=== PATIENT | female | born 1975 | race Caucasian/White ===

== ENCOUNTER 2017-03-31 07:20 | Emergency (ER) | payer OTHER ==
[2017-03-31 07:40] VITALS: BP 142/85
[2017-03-31] MEDS ORDERED: cefTRIAXone VIAL(*) 1,000 MG VIAL IM ONE (08:09)
[2017-03-31] MEDS ORDERED: Lidocaine 1%* 5 ML VIAL ONE (08:13)
[2017-03-31] MEDS ORDERED: Phenazopyridine TAB* 100 MG PO ONE (08:14)
--- NOTE | 2017-03-31 09:06 | UC ---
Complaint Female HPI - HPI Summary HPI Summary: pt c/o urinary symptoms of dysuria, frequency and urgency X 1.5 weeks. Also, c/ o right flank pain. Denies fever or chills has SOLITARIO at time of exam. - History Of Current Complaint Chief Complaint: UCGU Stated Complaint: URINARY COMPLAINT Time Seen by Provider: 03/31/17 07:23 Hx Obtained From: Patient Hx Last Menstrual Period: pt is on nexplanon and states getting menses irregularyl ?: No Onset/Duration: Sudden Onset, Lasting Days - 10, Worse Since - onset Timing: Constant Severity Initially: Mild Severity Currently: Mild Pain Intensity: 7 Pain Scale Used: 0-10 Numeric Character: Burning Aggravating Factor(s): Urination Alleviating Factor(s): Nothing Associated Signs And Symptoms: Positive: Back Pain - Allergies/Home Medications Allergies/Adverse Reactions: Allergies Allergy/AdvReac Type Severity Reaction Status Date / Time No Known Allergies Allergy Verified 03/31/17 07:41 Home Medications: Home Medications Multiple Vitamins W/ Minerals [Womens Multivitamin] 1 tab PO DAILY 03/31/17 [ History Confirmed 03/31/17] Omeprazole CAP* [Prilosec CAP* 20 MG] 40 mg PO DAILY 03/31/17 [History Confirmed 03/31/17] PMH/Surg Hx/FS Hx/Imm Hx Previously Healthy: Yes - Surgical History Surgical History: Yes Surgery Procedure, Year, and Place: TYMPANIC MEMBRANE PATCYH.C SECTION 1994, - Family History Known Family History: Positive: Cardiac Disease - Social History Occupation: Employed Full-time Lives: With Family Alcohol Use: None Substance Use Type: None Smoking Status (MU): Heavy Every Day Tobacco Smoker Type: Cigarettes Amount Used/How Often: 1/2 ppd Length of Time of Smoking/Using Tobacco: since age 12 Have You Smoked in the Last Year: Yes When Did the Patient Quit Smoking/Using Tobacco: 6 months ago Household Exposure Type: Cigarettes - Immunization History Most Recent Influenza Vaccination: 3601-5943 Vaccination Up to Date: No Review of Systems Constitutional: Fatigue Skin: Negative Eyes: Negative ENT: Negative Respiratory: Negative Cardiovascular: Negative Gastrointestinal: Negative Genitourinary: Frequency, Urgency, Other - cva tenderness Motor: Negative Neurovascular: Negative Musculoskeletal: Negative Neurological: Headache Psychological: Negative Is Patient Immunocompromised?: No All Other Systems Reviewed And Are Negative: Yes Physical Exam Triage Information Reviewed: Yes Appearance: Ill-Appearing, Other: - tearful Vital Signs: Initial Vital Signs Temp 99.3 F 03/31/17 07:34 Pulse 81 03/31/17 07:34 Resp 16 03/31/17 07:34 BP 142/85 03/31/17 07:34 Pulse Ox 99 03/31/17 07:34 Vital Signs Reviewed: Yes Eye Exam: Normal ENT Exam: Normal Dental Exam: Normal Neck exam: Normal Respiratory Exam: Normal Cardiovascular Exam: Normal Abdominal Exam: Other Abdomen Description: Positive: CVA Tenderness (R) Musculoskeletal Exam: Normal Neurological Exam: Normal Psychological Exam: Normal Skin Exam: Normal Complaint Female Dx - Course Course Of Treatment: I disucssed with the pt my concerns about pyrelonephritis. Pt denies fever, and agreed that if symptoms did not improve she would seek care at the closest ER. I encouraged pt to go to ER today, pt declined. - Differential Dx/Diagnosis Differential Diagnosis/HQI/PQRI: Ureteral Stone, Urinary Tract Infection, Other - Pyelonephritis, kidney stone Provider Diagnoses: UTI. Pyelonephritis-? Discharge - Discharge Plan Condition: Stable Disposition: HOME Prescriptions: Cephalexin CAP* [Keflex 500 CAP*] 500 mg PO Q12H #10 cap Phenazopyridine TAB* [Pyridium 100 mg TAB*] 100 mg PO Q8H #3 tab Patient Education Materials: Urinary Tract Infection in Women (ED) Referrals: Keely Monge MD [Primary Care Provider] - If Needed
--- NOTE | 2017-04-02 07:16 | UC ---
Progress - Progress Note Progress Note: no change.
== END 2017-03-31 08:51 | disposition home or self-care (01) ==
LOC: UCCORT 07:20
DX: N39.0 Urinary tract infection, site not specified (principal); B96.20 Unspecified Escherichia coli [E. coli] as the cause of diseases classified elsewhere; Z87.891 Personal history of nicotine dependence
CPT/HCPCS: 81003; 87077; 87086; 87186; 96372; 99212; A9270-GY; G0463; J0696

== ENCOUNTER 2017-08-16 08:41 | Day surgery (SDC) | payer OTHER ==
--- NOTE | 2017-08-05 09:37 | HP ---
CC: Keely Monge MD * PREOP HISTORY AND PHYSICAL: DATE OF DICTATION: 08/02/17 DATE OF SURGERY: 08/16/17 ATTENDING SURGEON: Rosalina Gamble MD * (DICTATED BY RAO HANKINS) PRIMARY CARE PHYSICIAN: Keely Monge MD CHIEF COMPLAINT: Left breast abnormal mammogram. HISTORY OF PRESENT ILLNESS: Devi is a pleasant 42-year-old female who returned to the office today to discuss upcoming left breast excisional biopsy to be scheduled later this month. The patient has history of prior lumpectomy of the left breast back in 2010 due to abnormal mammogram. She has a strong family history of breast cancer of her maternal side for which she has been getting screening mammogram every 6 months. Back in 2010, her lumpectomy was essentially benign. She does a monthly breast exam and denies feeling any of lumps or masses. Her most recent mammogram was done back in May of this year that revealed abnormal stellate abnormality of the left breast. She went on and had sonographic guided biopsy that was unsuccessful back in June of this year. All the images were reviewed by Dr. Gamble and the patient saw her earlier this month. The decision was finally made to go ahead and do left breast excision after mammogram guided needle localization to remove the abnormal sonographic abnormality on her left breast. As mentioned above, the patient denies feeling any lumps are masses. She denies any skin changes, nipple discharge, fever, chills, or recent weight loss. She has never had any control use in her life. She is a smoker and denies any history of hyperlipidemia or personal history of breast cancer. PAST MEDICAL HISTORY: Significant for: 1. Hypothyroidism. 2. Seasonal allergies. 3. Acid reflux diseases. PAST SURGICAL HISTORY: Significant for: 1. back in 1994. 2. She also had a left breast lumpectomy back in 2010. CURRENT MEDICATIONS: Her medications at home include: 1. Nexplanon inserted q. 3 months 68 mg. 2. Katelyn 180 mg once daily. 3. Levothyroxine 125 mcg once daily. 4. Women's daily formula 1 tablet once daily. 5. Omeprazole 20 mg one tablet daily. ALLERGIES: She has no known drug allergies. SOCIAL HISTORY: The patient is a current smoker. Smokes about 10 cigarettes a day. She denies alcohol use and caffeine intake is minimal. She is and has grown up daughter. FAMILY HISTORY: Significant for breast cancer on the maternal side. REVIEW OF SYSTEMS: See HPI, otherwise negative. She denies any headache, dizziness, blurred vision, or double vision. No sore throat, changes in hearing , cough, or shortness of breath. No chest pain, palpitation, or ankle swelling. She denies any back pain, flank pain, dysuria, hematuria or urinary frequency. No abdominal pain, nausea, vomiting, or recent changes in her bowel habits. She admits to abnormal left breast mammogram recently with history of left breast lumpectomy. All her biopsies done and excisions were all benign. PHYSICAL EXAMINATION GENERAL: She is a pleasant, healthy-appearing middle-aged female, in no acute distress or discomfort. VITAL SIGNS: Her vitals today revealed blood pressure of 130/90, pulse of 68, respiration of 20, and O2 sat of 96%. HEENT: Head is normocephalic, atraumatic. Sclerae anicteric. PERRLA. EOMs intact. Oropharynx is pink, moist with no exudate. NECK: Supple. Trachea midline. No cervical adenopathy, thyromegaly, or JVD. LUNGS: Clear to auscultation bilaterally. HEART: Regular rate and rhythm. Normal S1 and S2 without rubs, murmurs, or gallops. BACK: With normal curvature. No CVA tenderness. BREASTS: Breast exam was performed earlier this month by Dr. Gamble that revealed symmetrical breasts with exception for scar in superior outer aspect of the left breast. There is no skin dimpling or nipple retraction. Palpation reveals no discrete masses in either breasts. There is a dense knobby tissue in the region of the scar, again no discrete masses or lumps. There is no lymphadenopathy bilaterally. There are no skin changes, nipple retraction, or discharge bilaterally. ABDOMEN: Soft, nontender, and nondistended. There are no hernias, masses, or hepatosplenomegaly. EXTREMITIES: Without cyanosis, clubbing, or edema. NEUROLOGIC: Grossly intact. RECTAL: Exam deferred at this time. IMPRESSION: A 42-year-old female with a recent screening mammogram revealing abnormal stellate lesion on left breast with a family history of breast cancer. PLAN: The patient is scheduled for mammogram guided needle localization of the left breast with excision of sonographic abnormality. She had a long discussion with Dr. Gamble and revealed that the sonographic finding was suspicious enough that is likely old due to scar tissue; however, there was no biopsy obtainable to reveal any histological findings for which further evaluation by surgical biopsy was warranted. We went ahead and described to her the nature of the needle localization with excision of the left breast, we reviewed the risks, rationale benefits. Risks include but not limited to infection, bleeding, or injury to adjacent structures. She seems to understand and wishes to proceed as outlined. RAO HANKINS [id number]/[facility] #: [id number] KELLY
[~2017-08-16 08:41] MED LIST: Buffered Lidocaine 0.9% SYRIN* 5 ML/SYR SYRINGE INTRADERM ONE; Sodium Citrate/Citric Acid* 15 ML UDC PO ONE
[2017-08-16] MEDS ORDERED: ceFAZolin 2 GM PREMIX (*) 2 GM/50 ML BAG IVPB ONE (08:49)
[2017-08-16] MEDS ORDERED: Sodium Citrate/Citric Acid* 15 ML UDC ONE (08:49)
[2017-08-16] MEDS ORDERED: Lidocaine 2.5%/Prilocain 2.5%* 5 GM TUBE ONE (08:49)
--- NOTE | 2017-08-16 10:31 | RAD ---
PROCEDURE: Mammographic needle/wire localization of the left breast PREOPERATIVE DIAGNOSIS: Atypical ductal hyperplasia POSTOPERATIVE DIAGNOSIS: Same COMPARISONS: August 13, 2017 LEATHER ROLLER: Desmond Olmedo MD ANESTHESIA: Local anesthesia with 1% lidocaine without epinephrine FLUOROSCOPY TIME: None CONTRAST: None PROCEDURAL NARRATIVE: A embroidery operator film was obtained on August 13, 2017. The procedure was explained to the patient who indicated understanding. Written and verbal informed consent was obtained. An opportunity was given to ask and answer questions. A timeout was performed. The patient was prepped and draped in the usual sterile fashion. Using mammographic guidance, a needle/wire localization system was advanced to the target lesion in the left breast. Once position was confirmed, the needle was removed using pin pull technique. Post localization mammography was performed. The wound was dressed and the wire was secured. FINDINGS: The tip of the hookwire is noted in close proximity to the marker clip of the left upper breast. SPECIMENS: Pending COMPLICATIONS: None DISPOSITION: The patient tolerated the procedure well, without complications during or immediately following the procedure. The patient was sent to the surgical suite in good, stable condition.. IMPRESSION: TECHNICALLY SUCCESSFUL, UNCOMPLICATED, NEEDLE/WIRE LOCALIZATION OF THE LEFT BREAST. HISTOLOGY IS PENDING
[2017-08-16] MEDS ORDERED: Lidocain 1% EPI 1:100,000 * 30 ML MDV ONE (11:07)
[2017-08-16] MEDS ORDERED: Bupivacaine 0.5%* 50 ML VIAL ONE (11:08)
[2017-08-16] MEDS ORDERED: Lidocaine 1% INJ* 10 MG/ML 30 ML SDV ONE (11:08)
[2017-08-16] MEDS ORDERED: fentaNYL* 50 MCG/ML 2 ML VIAL (100 MCG VIAL) ONE (11:35)
[2017-08-16] MEDS ORDERED: Midazolam* 1 MG/ML 2 ML VIAL (2 MG) ONE ×2 (11:35→11:41)
[2017-08-16] MEDS ORDERED: Propofol* 10 MG/ML 20 ML BTL IV PUSH ONE (11:39)
--- NOTE | 2017-08-16 12:57 | BRIEFOPN ---
Brief Operative Note - Surgery Procedures: 08/16/17 Op Note (dictated) Pre-op dx: sonographic abnormality left breast Post-op dx: same Procedue: needle localization excision of left breast sonographic abnormality Surgeon: Tye Asst: Mumtaz Anesth: local-MAC EBL: 5 cc SCDs on during surgery Abx: given pre-op Pt. tolerated procedure well and was transferred to in a stable condition. CLFoster
[2017-08-16] MEDS ORDERED: oxyCODONE/Acetamin 5/325 MG* TAB PO PRN ×2 (13:02)
[2017-08-16] MEDS ORDERED: Naloxone* 0.4 MG/ML 1 ML VIAL IV PRN (13:09)
[2017-08-16 13:22] VITALS: BP 108/64
--- NOTE | 2017-08-16 21:55 | OP ---
CC: Dr. Keely Monge; Dr. Celine Ruvalcaba * DATE OF OPERATION: 08/16/17 - [facility] DATE OF : 73 SURGEON: Rosalina Gamble MD NURSE PARALEGAL: Mumtaz. PRE-OP DIAGNOSIS: Sonographic abnormality of the left breast. POST-OP DIAGNOSIS: Sonographic abnormality of the left breast. OPERATIVE PROCEDURE: Needle localization excision of sonographic abnormality of the left breast. INDICATIONS: Devi Love is a 42-year-old woman who had a recent mammogram that showed a concerning lesion. An attempt was made at ultrasonographically biopsying this, it was unsuccessful, so plans were made for a surgical intervention. On the morning of surgery, she underwent needle localization without difficulty. DESCRIPTION OF PROCEDURE: She was then brought to the operating room, placed on the OR table in a supine position and given IV sedation. The left breast was prepped and draped in the usual sterile fashion taking care not to dislodge the localizing wire. After infiltrating with local anesthetic, a curvilinear elliptical incision encompassing the wire was made. Subcutaneous tissue was then divided with electrocautery to excise the massive tissue from around the wire. It was marked in the usual fashion and it was noted that the tip of the wire was visible at the inferior aspect of the specimen, so the decision was made to excise some more tissue from inferiorly. This was done with electrocautery. This second specimen was also marked in the usual fashion and it was noted that the superior aspect of the second specimen apposed the inferior aspect of the first specimen. Once these specimens were out, they were handed off to be sent to Radiology. Meanwhile, hemostasis was assured with electrocautery and once this was adequate, some additional local was instilled into the wound and then closure was accomplished. This was done with 3-0 Vicryl in the subcutaneous layer and the skin was closed with 4-0 Prolene in a subcuticular fashion. Steri-Strips and a dry sterile dressing were applied. All sponge and instrument counts were correct. The patient tolerated the procedure well and was transferred to Recovery in a stable condition. [id number]/[facility] #: [id number] MTDD
== END 2017-08-16 13:26 | disposition home or self-care (01) ==
LOC: SDS 08:41
PROVIDERS: ATTEND Surgery
DX: D24.2 Benign neoplasm of left breast (principal); N60.12 Diffuse cystic mastopathy of left breast; E03.9 Hypothyroidism, unspecified; K21.9 Gastro-esophageal reflux disease without esophagitis; F17.210 Nicotine dependence, cigarettes, uncomplicated
CPT/HCPCS: 81025; 88307; A9270-GY; J0690; J2250; J2704; J3010

== ENCOUNTER 2017-08-20 07:44 | Emergency (ER) | payer OTHER ==
[2017-08-20 08:05] VITALS: BP 119/90
--- NOTE | 2017-08-20 08:30 | UC ---
UC General HPI - HPI Summary HPI Summary: one week cough, st, yellow - green phlegm. No sob, but more tired. Tima since yesterday. No rash. Tired of coughing. No GI issues reported. Sx started Saturday (7 days ago, today is ). Had breast reduction Saturday08/16/17. Denies problems with surgery. Current sx are c/w what she had prior to surgery. No calf pain. No leg swelling. No shoulder pain. No change in cough / sob. - History of Current Complaint Chief Complaint: UCRespiratory Stated Complaint: COUGH,THROAT Time Seen by Provider: 08/20/17 08:00 Hx Obtained From: Patient Hx Last Menstrual Period: 06/06/2017 - mirana just taken out Pain Intensity: 0 - Allergy/Home Medications Allergies/Adverse Reactions: Allergies Allergy/AdvReac Type Severity Reaction Status Date / Time No Known Allergies Allergy Verified 08/20/17 08:06 Home Medications: Home Medications diphenhydrAMINE HCl [Allergy Medication] 25 mg PO DAILY 08/20/17 [History Confirmed 08/20/17] PMH/Surg Hx/FS Hx/Imm Hx Previously Healthy: Yes - Surgical History Surgical History: Yes Surgery Procedure, Year, and Place: TYMPANIC MEMBRANE PATCH 1989.C SECTION 1994, . LEFT BREAT LUMPECTOMY 2010 [facility]. LEFT BREAST LUMPECTOMY 08/16/17 - Family History Known Family History: Positive: Cardiac Disease - Social History Alcohol Use: None Substance Use Type: None Smoking Status (MU): Current Some Day Smoker Type: Cigarettes Amount Used/How Often: 5 A DAY Length of Time of Smoking/Using Tobacco: since age 12 Have You Smoked in the Last Year: No When Did the Patient Quit Smoking/Using Tobacco: 6 months ago Household Exposure Type: Cigarettes - Immunization History Most Recent Influenza Vaccination: [id number] Vaccination Up to Date: No Review of Systems Constitutional: Fatigue Skin: Negative Eyes: Negative ENT: Negative Respiratory: Cough Cardiovascular: Negative Gastrointestinal: Negative Genitourinary: Negative Motor: Negative Neurovascular: Negative Musculoskeletal: Negative Neurological: Negative Psychological: Negative Is Patient Immunocompromised?: No All Other Systems Reviewed And Are Negative: Yes Physical Exam Triage Information Reviewed: Yes Appearance: Well-Nourished - sitting up. looks a little tired but nad. Vital Signs: Initial Vital Signs Temp 98.8 F 08/20/17 07:58 Pulse 79 08/20/17 07:58 Resp 18 08/20/17 07:58 BP 119/90 08/20/17 07:58 Pulse Ox 97 08/20/17 07:58 Vital Signs Reviewed: Yes Eye Exam: Normal - grossly normal. ENT: Positive: TM dull - Bilat dull, mendiola, rtx'd., Other - mild post pharyngeal edema (c/w coughing), uvula midline. Airway patent. No stridor. Neck exam: Normal Neck: Positive: Supple Respiratory Exam: Other - + cough rhonchorus occas exp wheeze Respiratory: Positive: No respiratory distress, No accessory muscle use Cardiovascular Exam: Normal Cardiovascular: Positive: RRR, No Murmur, Pulses Normal, Brisk Capillary Refill Abdominal Exam: Normal Abdomen Description: Positive: Nontender Musculoskeletal Exam: Normal - moves x 4 ext's. gait steady. Neurological Exam: Normal - grossly nonfocal Psychological Exam: Normal - conversing easily and appropriately Skin Exam: Normal - no visible or reported rash. Course/Dx - Course Course Of Treatment: Reviewed coa / tx plan with pt, and reviewed need for recheck if worse or new sx(given recent surgery, she would need to consider ED) . Expressed understanding and agreement. Questions answered as posed. - Differential Dx - Multi-Symptom Provider Diagnoses: Acute bronchitis Discharge - Sign-Out/Discharge Documenting (check all that apply): Discharge - Discharge Plan Condition: Stable Disposition: HOME Prescriptions: Albuterol HFA INHALER* [Ventolin HFA Inhaler*] 1 - 2 puff INH Q4H PRN #1 mdi PRN Reason: Wheezing Azithromyxin SAMI (NF) [Z-Sami (Zithromax) 250 mg tabs #6] 2 tab PO .TODAY, THEN 1 DAILY #6 tab Fluconazole [Diflucan 150 MG (NF)] 150 mg PO DAILY #2 tab Patient Education Materials: Acute Bronchitis (ED) Forms: *Work Release Referrals: Keely Monge MD [Primary Care Provider] - - Billing Disposition and Condition Condition: STABLE Disposition: HOME
== END 2017-08-20 08:50 | disposition home or self-care (01) ==
LOC: UCCORT 07:44
DX: J20.9 Acute bronchitis, unspecified (principal); R44.8 Other symptoms and signs involving general sensations and perceptions; F17.210 Nicotine dependence, cigarettes, uncomplicated; Z98.890 Other specified postprocedural states
CPT/HCPCS: 99212; G0463

== ENCOUNTER 2017-12-24 16:22 | Emergency (ER) | payer OTHER ==
[2017-12-24 16:42] VITALS: BP 118/83
--- NOTE | 2017-12-24 17:10 | UC ---
Skin Complaint HPI - HPI Summary HPI Summary: Patient presents to urgent care with a rash on bilateral forearms. Patient states she first dose about 2 weeks ago. Patient states takes a shower gets the rash gets worse. 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 Patient has applied [id number] cortisone cream with little improvement. Patient states there has been new spots that have appeared but they're only on her forearms. Patient denies shortness of breath patient swelling wheezing or any other complaints. Patient denies any new foods. Patient states she did start a new hair gel product. 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 Patient states nobody else at home has similar symptoms. Patient is not . Patient's medications reviewed this visit. - History of Current Complaint Chief Complaint: UCRash Time Seen by Provider: 12/24/17 16:45 Stated Complaint: RASH ON BOTH ARMS Hx Obtained From: Patient Hx Last Menstrual Period: 11/04/17 ?: No Onset/Duration: Gradual Onset Skin Exposure Onset/Duration: Weeks Ago Pain Intensity: 0 - itching, no pain Location: Discrete - Allergy/Home Medications Allergies/Adverse Reactions: Allergies Allergy/AdvReac Type Severity Reaction Status Date / Time No Known Allergies Allergy Verified 12/24/17 16:43 Home Medications: Home Medications Fexofenadine (NF) [Katelyn 180 (NF)] 180 mg PO DAILY 12/24/17 [History Confirmed 12/24/17] Review of Systems Constitutional: Negative Skin: Other All Other Systems Reviewed And Are Negative: Yes PMH/Surg Hx/FS Hx/Imm Hx Previously Healthy: Yes - Surgical History Surgical History: Yes Surgery Procedure, Year, and Place: TYMPANIC MEMBRANE PATCH 1989.C SECTION 1994, . LEFT BREAT LUMPECTOMY 2010 [facility]. LEFT BREAST LUMPECTOMY 08/16/17 - Family History Known Family History: Positive: Cardiac Disease - Social History Occupation: Employed Full-time Lives: With Family Alcohol Use: None Substance Use Type: None Smoking Status (MU): Current Some Day Smoker Type: Cigarettes Amount Used/How Often: 5 A DAY Length of Time of Smoking/Using Tobacco: since age 12 Have You Smoked in the Last Year: No When Did the Patient Quit Smoking/Using Tobacco: 6 months ago Household Exposure Type: Cigarettes - Immunization History Most Recent Influenza Vaccination: [id number] Vaccination Up to Date: No Physical Exam - Summary Physical Exam Summary: Vital Signs Reviewed: Yes A+Ox3, no distress Eyes: Conjunctiva Clear ENT: Hearing grossly normal neck: supple Respiratory: Positive: No respiratory distress, No accessory muscle use Cardiovascular: skin color reflect adequate perfusion Musculoskeletal Exam: ESTRELLA x 4 without difficulty Neurological: Positive: Alert, ambulatory without difficulty Psychological: Positive: Normal Response To Family Skin: Positive: pt with hive-like rash to b/l forearms, volar aspect. No lesion proximal to elbow red, raised, pruruitic. Not dry appearing, no vesicles Triage Information Reviewed: Yes Vital Signs: Initial Vital Signs Temp 98.7 F 12/24/17 16:38 Pulse 59 12/24/17 16:38 Resp 16 12/24/17 16:38 BP 118/83 12/24/17 16:38 Pulse Ox 99 12/24/17 16:38 Course/Dx - Course Course Of Treatment: Patient presents with 2 weeks of pruritic rash to bilateral forearms. Patient states has mildly in the same area. Patient states it's worse when she exercises or takes a hot shower. Patient has applied topical over the counter hydrocortisone cream with mild improvement. 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 No bendaryl taken. Pt denies other complaints. On exam pt with mild hive like lesions to b/l forarms. no other areas affect. d/w pt at length - suspect contact dermatitis - from ? spin bike, planks, other other. recommend pred taper, pepcid, benadryl - precautions discussed. strict return precautions discussed. pt given contact info for derm if sx don't improve. pt comfortable an in agreement with plan - Diagnoses Provider Diagnoses: acute rash Discharge - Sign-Out/Discharge Documenting (check all that apply): Patient Departure All imaging exams completed and their final reports reviewed: No Studies - Discharge Plan Condition: Stable Disposition: HOME Prescriptions: predniSONE TAB* [Deltasone 20 MG TAB*] 20 mg PO DAILY #13 tab Patient Education Materials: Contact Dermatitis (ED) Referrals: Panda Michelle MD [Medical Doctor] - Keely Monge MD [Primary Care Provider] - Additional Instructions: - Take prednisone exactly as prescribed until gone - starting today - Okay to take Benadryl (1-2 tablets) every 6 hours as needed. This medication may cause drowsiness - do NOT drive, operate machinery or drink alcohol while taking Benadryl. Alternatively, you may apply over the counter benadryl cream to your rash - Okay to take pepcid 20mg 2 times daily for 7 days - Avoid getting over heated (hot showers, hot tubs, exercise) for at least 48 hours - Try to avoid aspirin, NSAIDs (Motrin, Aleve, Naprosyn) for 2-3 days - Okay to apply cool compresses to the area of injury - Contact your doctor or return here with questions or concerns - You have been given referral information for a betting clerks. If your symptoms persist it is recommended you contact this specialist to schedule a follow-up appointment - Billing Disposition and Condition Condition: STABLE Disposition: Home
== END 2017-12-24 17:17 | disposition home or self-care (01) ==
LOC: UCCORT 16:22
DX: R21 Rash and other nonspecific skin eruption (principal); F17.210 Nicotine dependence, cigarettes, uncomplicated
CPT/HCPCS: 99212; G0463

== ENCOUNTER 2018-08-20 07:52 | Emergency (ER) | payer OTHER ==
--- OUTSIDE RECORDS SUMMARY | 2018-08-20 08:10 | XMS REPORT | Continuity of Care Document ---
:1975 External Reference #:[id number] Author Name Keely Monge MD Address [address] [place] [address] Care Team Providers Name Role Phone Keely Monge MD Care Team Information Lavatory Attendant Unavailable Payers Date Identification Numbers Payment Provider Subscriber Policy Number: [id number] Lifetime Benefit Solns Devi Love Group Number: [id number] [address] [address] PayID: [facility] [place] [address] Effective: 2003 Policy Number: [id number] Delta DO Not Use Devi Love Expires: 2014 Group Number: [id number] [address] PayID: [place] [address] Onset: 2018 Policy Number: [id number] [employer] Devi Love PayID: [id number] [place] [address] Advance Directives Description No Information Available Problems Date Description Provider Status Onset: 08/01/2010 Pure hypercholesterolemia Marin Sandra DO Active Onset: 08/01/2010 Vitamin D deficiency Marin Sandra DO Active Onset: 02/18/2005 Hypothyroidism Active Onset: 05/19/2018 Irregular periods Keely Monge MD Active Onset: 05/19/2018 Mild major depression, single episode Keely Monge MD Active Onset: 05/19/2018 Hematuria syndrome Keely Monge MD Active Onset: 05/14/2017 Irritable bowel syndrome characterized Keely Monge MD Active by constipation Family History Date Family Member(s) Observation Comments Father Hypercholesterolemia Father due to Multiple Myeloma () - AGE 60 Father DM2 Mother Hypercholesterolemia Mother DM2 Children 1 Siblings 4 First Sister Mental Illness SCHIZOPHRENIA Paternal Grandfather due to MS () - AGE 75 SMOKER Maternal Grandfather due to MS () - AGE 75 SMOKER Social History Type Date Description Comments Sex Unknown Marital Status Lives With Daughter Occupation Public Health Educator ETOH Use Rarely consumes alcohol Tobacco Use Start: Unknown Patient has never smoked Smoking Status Reviewed: 03/14/18 Patient has never smoked Allergies, Adverse Reactions, Alerts Date Description Reaction Status Severity Comments 11/01/2015 Seasonal Active 09/07/2016 Augmentin Active Rash Medications Medication Date Status Form Strength Qnty SIG Indications Ordering Provider Levonorgestrel/Et 06/09/ Active Tablets 0.15-0.03m 84tab 1 by Z30.09 Saleem hinyl Estradiol 2019 g s mouth MD Keely daily Escitalopram 05/19/ Active Tablets 10mg 30tab 1 by F32.0 Saleem Oxalate 2018 s mouth MD Keely every day Dicyclomine HCL 11/11/ Active Capsules 10mg 90cap 1 by K58.1 Saleem, 2017 s mouth MD Keely before meals as needed Omeprazole 09/24/ Active Capsules 40mg 90cap take one K58.1 Saleem, 2016 s capsule MD Keely by mouth every day Ibuprofen 05/02/ Active Capsules 200mg 4 tabs by Jocy, 2016 mouth Marin, once a DO day as needed with food or snack for pain Katelyn-D 24 Hour 10/31/ Active Tablets ER 180-240mg 30tab 1 by J30.9 Jocy, Allergy & 2016 24HR s mouth Marin, Congestion every day DO Multivitamins 10/08/ Active Capsules OTC 1 by Jocy 2015 mouth Marin, every day DO Levothyroxine 09/13/ Active Tablets 125mcg 90tab take one E03.9 Richard Monge 2015 s tablet by MD Keely mouth every day Acetaminophen 00/00/ Active Tablets 325mg 2 by Unknown 0000 mouth four times a day as needed Azithromycin 06/09/ Hx Tablets 250mg 6tabs 2 by J01.90 Saleem, 2019 - link Riggs MD 08/07/ today, 2019 then 1 by mouth daily x 4 more days Meloxicam 03/05/ Hx Tablets 15mg 30tab 1 tab by M25.512 Saleem 2018 - s link Riggs MD 05/18/ daily for 2019 pain for 1-2 weeks, then daily as needed for pain Cyclobenzaprine 03/05/ Hx Tablets 10mg 30tab 1 by M25.512 Saleem HCL 2018 - s link Riggs MD 05/18/ every at 2018 bedtime x 1-2 weeks, then as needed muscle spasm Oseltamivir 06/20/ Hx Capsules 75mg 10cap 1 by J11.1 Saleem Phosphate 2018 - s link Riggs MD 10/18/ twice 2018 daily x 5 days Fluconazole 04/16/ Hx Tablets 150mg 1tabs 1 tablet N89.8 Jose Armando 2016 - by mouth Terrell, 04/17/ x 1 DO 2016 Dicyclomine HCL 09/24/ Hx Capsules 10mg 90cap 1 by K58.1 Jocy, 2016 - s mouth Marin, 10/18/ before DO 2017 meals tid Metronidazole 09/10/ Hx Tablets 500mg 14tab 1 tablet Caity 2016 - s by mouth Kristin, 09/24/ twice PA 2016 daily for 7 days Fluconazole 09/07/ Hx Tablets 150mg 1tabs 1 tablet N89.8 Caity, 2016 - by mouth Kristin, 09/24/ x 1 PA 2016 Augmentin 08/20/ Hx Tablets 875-125mg 14tab 1 by J01.10 Caity 2016 - s mouth Kristin, 08/27/ twice a PA 2016 day x 7 days Ibuprofen (OTC) 05/02/ Hx Tablets 800mg 90tab 4 by Jocy, 2015 - s mouth Marin, 05/02/ once a DO 2015 day as needed Clobetasol 04/11/ Hx Cream 0.05% 60uni apply to Jocy Propionate 2014 - ts area Marin, 05/02/ twice a DO 2015 day Bentyl 12/13/ Hx Tablets 20mg 90tab 1 by 789.00 Jocy, 2014 - s mouth Marin, 10/31/ three DO 2016 times a day as needed symptoms Ortho Tri-Cyclen / Hx Tablets 0.18/0.215 1 by Anderson (28) 0000 - /0.25 mouth Center 05/02/ mg-35 mcg every day 2015 Linzess / Hx Capsules 145mcg 90cap 1 by K58.1 Jocy, 0000 - s mouth Marin, 10/18/ every day DO 2017 Nexplanon /00/ Hx Implant 68mg Jordon, 0000 - Celine 2017 Amoxicillin /00/ Hx Tablets 875mg Take One Unknown 0000 - Tablet By Mouth 2018 Every 12 Hours- pt states she is on day 3 of . Fluconazole 00/ Hx Tablets 150mg Take 1 Unknown 0000 - Tablet By Mouth 2018 Once Immunizations CPT Code Status Date Vaccine Lot # [id number] Given 02/17/2018 Flu Vaccine NOS 66090 Given 02/03/2017 Afluria Or Fluvirin Flu Vac Intramuscular 24622 Given 07/17/2006 Tdap (Adacel) Ages 7 And Above Only Vital Signs Date Vital Result Comment 08/07/2018 8:47am Weight 163.00 lb BP Systolic Lying Down 120 mmHg HR 60 BP Diastolic Lying Down 80 mmHg HR 60 BP Systolic Sitting 120 mmHg HR 60 BP Diastolic Sitting 80 mmHg HR 60 BP Systolic Standing 120 mmHg HR 60 BP Diastolic Standing 80 mmHg HR 60 Respiratory Rate 18 /min Height 63 inches 5'3" BMI (Body Mass Index) 28.9 kg/m2 06/09/2018 10:12am Body Temperature 98.8 F Weight 158.00 lb Heart Rate 60 /min BP Systolic 114 mmHg BP Diastolic 68 mmHg Respiratory Rate 16 /min Height 63 inches 5'3" O2 % BldC Oximetry 96 % Ra BMI (Body Mass Index) 28.0 kg/m2 05/19/2018 1:17pm Weight 161.00 lb Heart Rate 72 /min BP Systolic 118 mmHg BP Diastolic 68 mmHg Respiratory Rate 16 /min Height 63 inches 5'3" O2 % BldC Oximetry 98 % Ra BMI (Body Mass Index) 28.5 kg/m2 03/14/2018 3:41pm Body Temperature 97.2 F Weight 158.00 lb Heart Rate 76 /min BP Systolic 124 mmHg BP Diastolic 70 mmHg Respiratory Rate 18 /min Height 63 inches 5'3" BMI (Body Mass Index) 28.0 kg/m2 03/05/2018 10:30am Body Temperature 97.8 F Weight 157.00 lb Heart Rate 62 /min BP Systolic 132 mmHg BP Diastolic 86 mmHg Respiratory Rate 16 /min Height 63 inches 5'3" O2 % BldC Oximetry 98 % Ra BMI (Body Mass Index) 27.8 kg/m2 11/11/2017 3:10pm Weight 158.00 lb Heart Rate 68 /min BP Systolic 122 mmHg BP Diastolic 80 mmHg Respiratory Rate 18 /min Height 63 inches 5'3"05/14/17 BMI (Body Mass Index) 28.0 kg/m2 10/18/2017 10:30am Weight 160.00 lb Heart Rate 72 /min BP Systolic 134 mmHg BP Diastolic 74 mmHg Respiratory Rate 18 /min Height 63 inches 5'3"05/14/17 BMI (Body Mass Index) 28.3 kg/m2 06/20/2017 9:35am Body Temperature 98.9 F Weight 162.00 lb Heart Rate 90 /min BP Systolic 130 mmHg BP Diastolic 70 mmHg Respiratory Rate 18 /min Height 63 inches 5'3"05/14/17 O2 % BldC Oximetry 96 % BMI (Body Mass Index) 28.7 kg/m2 05/14/2017 1:13pm Body Temperature 98.5 F Weight 164.00 lb Heart Rate 68 /min BP Systolic 120 mmHg BP Diastolic 72 mmHg Respiratory Rate 18 /min Height 63 inches 5'3"05/14/17 O2 % BldC Oximetry 98 % BMI (Body Mass Index) 29.0 kg/m2 04/10/2017 3:15pm Body Temperature 99.2 F Weight 166.00 lb Heart Rate 68 /min BP Systolic 132 mmHg BP Diastolic 80 mmHg Respiratory Rate 18 /min Height 63 inches 5'3" BMI (Body Mass Index) 29.4 kg/m2 10/31/2016 8:59am Weight 164.00 lb Heart Rate 72 /min 72 Reg BP Systolic 120 mmHg BP Diastolic 82 mmHg BP Systolic Recheck 120 mmHg BP Diastolic Recheck 80 mmHg Respiratory Rate 18 /min Height 63 inches 5'3" BMI (Body Mass Index) 29.0 kg/m2 09/24/2016 3:25pm Body Temperature 99.4 F tympanic Weight 166.00 lb Heart Rate 80 /min BP Systolic 114 mmHg BP Diastolic 66 mmHg Respiratory Rate 16 /min Height 63 inches 5'3" BMI (Body Mass Index) 29.4 kg/m2 09/07/2016 3:06pm Weight 165.00 lb Heart Rate 68 /min BP Systolic 130 mmHg BP Diastolic 70 mmHg Respiratory Rate 18 /min Height 63 inches 5'3" BMI (Body Mass Index) 29.2 kg/m2 08/20/2016 10:43am Body Temperature 99.4 F Weight 164.00 lb Heart Rate 56 /min BP Systolic 120 mmHg BP Diastolic 70 mmHg Respiratory Rate 18 /min Height 63 inches 5'3" O2 % BldC Oximetry 98 % BMI (Body Mass Index) 29.0 kg/m2 05/02/2016 8:58am Weight 157.00 lb With Shoes Heart Rate 66 /min 68 Reg BP Systolic 120 mmHg BP Diastolic 80 mmHg BP Systolic Recheck 110 mmHg BP Diastolic Recheck 80 mmHg Respiratory Rate 16 /min Height 63 inches 5'3" BMI (Body Mass Index) 27.8 kg/m2 11/01/2015 2:54pm Weight 159.00 lb Heart Rate 66 /min BP Systolic 118 mmHg BP Diastolic 70 mmHg Respiratory Rate 18 /min Height 63 inches 5'3" BMI (Body Mass Index) 28.2 kg/m2 05/25/2015 3:05pm Weight 155.00 lb Heart Rate 72 /min BP Systolic 124 mmHg BP Diastolic 62 mmHg Respiratory Rate 18 /min 04/11/2015 8:07am Weight 148.25 lb Heart Rate 84 /min BP Systolic 122 mmHg BP Diastolic 80 mmHg Respiratory Rate 18 /min Height 63 inches 5'3" BMI (Body Mass Index) 26.3 kg/m2 12/13/2014 4:09pm Body Temperature 99.5 F Weight 151.00 lb Heart Rate 72 /min BP Systolic 110 mmHg BP Diastolic 80 mmHg Respiratory Rate 18 /min Height 63 inches 5'3" BMI (Body Mass Index) 26.7 kg/m2 10/08/2014 8:05am Weight 150.00 lb Heart Rate 72 /min 70 BP Systolic 118 mmHg BP Diastolic 80 mmHg BP Systolic Recheck 120 mmHg BP Diastolic Recheck 76 mmHg Respiratory Rate 18 /min Height 63 inches 5'3" BMI (Body Mass Index) 26.6 kg/m2 04/09/2014 8:21am BP Systolic 110 mmHg BP Diastolic 70 mmHg 04/09/2014 8:21am Weight 147.00 lb Heart Rate 78 /min 72 Reg BP Systolic 126 mmHg BP Diastolic 64 mmHg Respiratory Rate 17 /min Height 63 inches 5'3" 03/20/2014 10:13am Body Temperature 99.2 F Weight 149.00 lb Heart Rate 72 /min BP Systolic 128 mmHg BP Diastolic 76 mmHg Respiratory Rate 17 /min Height 63 inches 5'3" 08/04/2013 8:23am Heart Rate 60 /min BP Systolic 100 mmHg BP Diastolic 76 mmHg Respiratory Rate 18 /min Height 63 inches 5'3" 03/20/2013 2:24pm Body Temperature 97.8 F Weight 147.00 lb Heart Rate 64 /min BP Systolic 128 mmHg BP Diastolic 70 mmHg Respiratory Rate 18 /min O2 % BldC Oximetry 98 % 02/03/2013 8:13am BP Systolic 110 mmHg BP Diastolic 80 mmHg 02/03/2013 8:13am Weight 142.00 lb Heart Rate 72 /min 72 Reg BP Systolic 120 mmHg BP Diastolic 80 mmHg Respiratory Rate 18 /min 01/20/2013 9:32am Body Temperature 97.9 F Weight 143.00 lb Heart Rate 72 /min BP Systolic 122 mmHg BP Diastolic 80 mmHg Respiratory Rate 18 /min O2 % BldC Oximetry 98 % Ra 08/04/2012 8:17am BP Systolic 110 mmHg BP Diastolic 70 mmHg 08/04/2012 8:17am Weight 140.00 lb Heart Rate 72 /min 72 Reg BP Systolic 108 mmHg BP Diastolic 72 mmHg Respiratory Rate 18 /min 04/24/2012 1:03pm Weight 140.50 lb Heart Rate 70 /min BP Systolic 114 mmHg BP Diastolic 76 mmHg Respiratory Rate 16 /min Height 63 inches 5'3" 02/18/2012 11:06am Body Temperature 99.5 F Weight 142.00 lb Heart Rate 60 /min BP Systolic 122 mmHg BP Diastolic 70 mmHg Respiratory Rate 18 /min 02/04/2012 8:14am BP Systolic 118 mmHg BP Diastolic 72 mmHg 02/04/2012 8:14am Weight 142.00 lb Heart Rate 60 /min 72 Reg BP Systolic 112 mmHg BP Diastolic 72 mmHg Respiratory Rate 18 /min 08/02/2011 8:04am BP Systolic 110 mmHg BP Diastolic 70 mmHg 08/02/2011 8:04am Weight 162.00 lb Heart Rate 66 /min 72 Reg BP Systolic 110 mmHg BP Diastolic 68 mmHg Respiratory Rate 18 /min Height 63 inches 5'3" 02/01/2011 8:06am Weight 167.00 lb Heart Rate 66 /min BP Systolic 110 mmHg BP Diastolic 70 mmHg Respiratory Rate 18 /min Height 63 inches 5'3" 08/01/2010 8:01am BP Systolic 102 mmHg BP Diastolic 70 mmHg 08/01/2010 8:01am Weight 156.00 lb Heart Rate 66 /min 60 Reg BP Systolic 102 mmHg BP Diastolic 70 mmHg Respiratory Rate 18 /min 01/31/2010 8:04am BP Systolic 100 mmHg BP Diastolic 60 mmHg 01/31/2010 8:04am Weight 161.00 lb Heart Rate 78 /min 72 Reg BP Systolic 102 mmHg BP Diastolic 62 mmHg Respiratory Rate 18 /min 11/23/2009 9:38am Body Temperature 98.8 F Weight 162.56 lb Heart Rate 78 /min BP Systolic 114 mmHg BP Diastolic 72 mmHg Respiratory Rate 18 /min O2 % BldC Oximetry 96 % Ra 10/17/2009 9:28am Body Temperature 98.3 F Weight 164.00 lb Heart Rate 70 /min BP Systolic 116 mmHg BP Diastolic 74 mmHg O2 % BldC Oximetry 96 % Ra 06/07/2009 8:00am Weight 162.00 lb Heart Rate 78 /min BP Systolic 110 mmHg BP Diastolic 76 mmHg Respiratory Rate 18 /min 12/02/2008 8:01am Weight 165.00 lb Heart Rate 72 /min BP Systolic 108 mmHg BP Diastolic 68 mmHg Respiratory Rate 18 /min 06/03/2008 8:04am Weight 164.00 lb Heart Rate 78 /min BP Systolic 114 mmHg BP Diastolic 68 mmHg Respiratory Rate 18 /min 12/01/2007 11:15am Weight 166.00 lb Heart Rate 72 /min BP Systolic 114 mmHg BP Diastolic 66 mmHg Respiratory Rate 18 /min Height 63.75 inches 5'3.75" 05/15/2007 9:12am Weight 162.00 lb Heart Rate 84 /min BP Systolic 120 mmHg BP Diastolic 70 mmHg Respiratory Rate 20 /min Height 63.75 inches 5'3.75" 07/17/2006 9:40am Body Temperature 98.4 F Weight 164.00 lb Heart Rate 80 /min BP Systolic 110 mmHg BP Diastolic 80 mmHg Respiratory Rate 12 /min Height 63.75 inches 5'3.75" 05/10/2006 9:55am Body Temperature 97.6 F Weight 166.00 lb Heart Rate 78 /min BP Systolic 110 mmHg BP Diastolic 62 mmHg Respiratory Rate 18 /min 11/20/2005 9:59am Weight 162.00 lb Heart Rate 60 /min BP Systolic 120 mmHg BP Diastolic 74 mmHg Respiratory Rate 12 /min 12/15/2004 8:53am Weight 150.00 lb Heart Rate 58 /min BP Systolic 110 mmHg BP Diastolic 80 mmHg 09/14/2004 9:06am Body Temperature 97.0 F Weight 156.00 lb Heart Rate 74 /min BP Systolic 110 mmHg BP Diastolic 70 mmHg Respiratory Rate 16 /min Results Test Date Facility Test Result H/L Range Note Rout Urine W/ Micro -RL 05/19/2018 [facility] Color YELLOW Appearance CLEAR Spec Grav Urine 1.024 (1.003-1.030) PH Urine 5.5 (5.0-7.5) Leuk Esterase NEGATIVE (Neg) Nitrite Urine NEGATIVE (Neg) Protein Urine NEGATIVE (Neg) Glucose Urine NEGATIVE (Neg) Ketone Urine NEGATIVE (Neg) Urobilinogen 0.2 mg/dL (0-1.0) Bilirubin Urine NEGATIVE (Neg) Blood/HGB Urine TRACE (Neg) Epithelial Cells NEGATIVE [HPF] (Neg) Hyaline Casts 3.2 [LPF] (0-5) Bacteria NEGATIVE [HPF] (Neg) Urine WBC 0.9 [HPF] (0-8) Urine RBC 3.3 [HPF] High (0-3) 1 Laboratory test 05/19/2018 [facility] Urine Culture Microbiology res <SEE 2 finding NOTE> Laboratory test 05/19/2018 [facility] FSH 6.6 mIU/ml 3, 4 finding LH 4.9 mIU/ml 5 CBC with Auto Diff-fcmg 05/19/2018 [facility] WBC 6.3 K/uL 4.1-11.0 RBC 4.60 M/uL 4.00-5.40 Hemoglobin 14.9 gm/dL 12.0-16.0 Hematocrit 42.6 % 36.0-47.0 MCV 92.6 fL 80.0-97.0 MCH 32.4 pg High 27.0-32.0 MCHC 35.0 g/dL 32.0-36.0 RDW 12.9 % 11.5-14.5 PLT Count 186 K/ul 140-400 MPV 8.6 FL 7.1-10.7 Neutrophil 55.7 % 35.0-75.0 Lymphocyte 35.8 % 16.0-52.0 Monocyte 6.3 % 2.0-10.0 Eosinophil 1.8 % 0.0-5.0 Basophil 0.4 % 0.0-4.0 Abs Neutrophils 3.5 K/uL 2.1-8.0 Abs Lymphocytes 2.2 K/uL 0.8-5.5 Abs Monocytes 0.4 K/uL 0.1-1.0 Abs Eosinophils 0.1 K/uL 0.0-0.5 Abs Basophils 0.0 K/uL 0.0-0.3 Comprehensive Met Panel-FCMG 05/19/2018 [facility] Sodium 141 mmol/L 135- 146 6 Potassium 4.2 mmol/L 3.5-5.2 Chloride# 107 mmol/L 97-110 7 Carbon Dioxide 24 mmol/L 24-34 Glucose 102 mg/dL 70-105 BUN 13 mg/dL 6-26 Creatinine 0.7 mg/dL 0.5-1.4 Calcium 9.4 mg/dL 8.5-10.2 Total Protein 6.3 g/dL 6.0-8.0 Albumin 4.4 g/dL 3.6-4.9 Globulin 1.9 g/dL Low 2.0-3.5 A/G Ratio 2.3 Ratio High 1.0-2.2 Total Bilirubin 0.4 mg/dL 0.1-1.3 Alkaline Phosphatase 55 U/L 24-140 Alt 11 U/L 3-42 Ast 15 U/L 8-42 Zoe Egfr >60 >60 8 Non Zoe Egfr >60 >60 9 Anion Gap 10 mmol/L 5-15 10 Laboratory test finding 05/19/2018 [facility] Estradiol 80 pg/mL 11 Laboratory test finding 05/15/2018 [facility] TSH 2.52 uIU/mL 0.35-4.94 12 Laboratory test finding 11/07/2017 [facility] TSH 2.21 uIU/mL 0.35-4.94 13 Laboratory test finding 04/26/2017 [facility] TSH 1.69 uIU/mL 0.35-4.94 14 Free T4 1.07 ng/dL 0.70-1.48 Vitamin D 25 Hydroxy 32 ng/mL 30-100 15 Comprehensive Met Panel-FCMG 04/26/2017 [facility] Sodium 139 mmol/L 135- 146 16 Potassium 4.1 mmol/L 3.5-5.2 Chloride# 106 mmol/L 97-110 17 Carbon Dioxide 25 mmol/L 24-34 Glucose 94 mg/dL 70-105 Creatinine 0.8 mg/dL 0.5-1.4 Calcium 9.6 mg/dL 8.5-10.2 Total Protein 6.7 g/dL 6.0-8.0 Albumin 4.3 g/dL 3.6-4.9 Globulin 2.4 g/dL 2.0-3.5 A/G Ratio 1.8 Ratio 1.0-2.2 Total Bilirubin 0.6 mg/dL 0.1-1.3 Alkaline Phosphatase 69 U/L 24-140 Alt 17 U/L 3-42 Ast 22 U/L 8-42 Zoe Egfr >60 >60 18 Non Zoe Egfr >60 >60 19 Anion Gap 8 mmol/L 7-16 20 BUN 13 mg/dL 6-26 Laboratory test 04/10/2017 [place] Urine Culture Microbiology res 21 finding <SEE NOTE> CBS W/Automated 04/03/2017 [facility] White Blood 6.0 K/ uL N 3.1-10 22 Diff (315)- - Count .7 Red Blood Count 3.55 M/uL Low 3.90-5.40 Hemoglobin 11.5 gm/dL Low 11.6-15.8 Hematocrit 33.2 % Low 36.0-46.1 Mean Cell Volume 93.5 fl N 80.9-99.0 Mean Corpuscular HGB 32.4 pg N 25.9-32.7 Mean Corpuscular HGB Conc 34.6 g/dL High 30.8-34.3 Platelet Count 179 K/uL N 150-400 Red Cell Distri Width SD 39.7 fl N 3-47 Red Cell Distri Width %CV 12.0 % N 11.7-14.4 Mean Platelet Volume 10.7 fL N 8.9-12.4 Neut% 63.3 % N 40.4-72.8 Lymph % 26.0 % N 20.0-42.0 Ashe % 8.7 % N 4.3-13.2 Eo% 1.8 % N 0.0-6.6 Bas% 0.2 % N 0.0-1.1 Neut# 3.81 K/uL N 1.8-7.0 Lymph # 1.56 K/uL N 1.0-4.0 Ashe # 0.52 K/uL N 0.3-0.9 Eos # 0.11 K/uL N 0.0-0.5 Baso # 0.01 K/uL N 0.0-0.1 Basic Metabolic Panel 04/03/2017 [facility] Glucose 128 mg/dL High 74-106 (315)- - BUN 11 mg/dL N 7-18 Creatinine 0.7 mg/dL N 0.6-1.3 Glom Filtration Rate, Estimate >60 mL/min >60 If >60 mL/min >60 23 BUN/Creat 15.7 ratio Sodium 141 mmol/L N 136-145 Potassium 3.5 mmol/L N 3.5-5.1 Chloride 110 mmol/L High 98-107 Carbon Dioxide 22 mmol/L N 21-32 Anion Gap 9 mEq/L N 8-16 Calcium 8.5 mg/dL N 8.5-10.1 Lactic Acid 04/02/2017 [facility] Lactic Acid 1.3 mmol/L N 0.4-1.9 (315)- - Lab Reflex >2.0 for Sepsis? Y Blood Culture 04/02/2017 [facility] Blood Culture NO GROWTH: FINAL 24 (315)- - Aerobic <SEE NOTE> Blood Culture Anaerobic NO GROWTH: FINAL <SEE NOTE> 25 Laboratory test 04/02/2017 [facility] Urine Culture NO GROWTH: 26 finding (315)- - FINAL <SEE NOTE> Culture If 04/02/2017 [facility] Culture If CULTURE TO 27, 28 Indicated Comment (315)- - Indicated FOLLO <SEE Comment NOTE> Source: URINE, CLEAN CAT <SEE NOTE> 29 Blood Culture 04/02/2017 [facility] Blood Culture NO GROWTH: 30, 31 (315)- - Aerobic FINAL <SEE NOTE> Blood Culture Anaerobic NO GROWTH: FINAL <SEE NOTE> 32 Comprehensive Metabolic 04/02/2017 [facility] Glucose 101 mg/dL N 74-106 33 Panel (315)- - BUN 12 mg/dL N 7-18 Creatinine 0.7 mg/dL N 0.6-1.3 Glom Filtration Rate, Estimate >60 mL/min >60 If >60 mL/min >60 34 BUN/Creat 17.1 ratio Sodium 141 mmol/L N 136-145 Potassium 3.8 mmol/L N 3.5-5.1 Chloride 110 mmol/L High 98-107 Carbon Dioxide 25 mmol/L N 21-32 Anion Gap 6 mEq/L Low 8-16 Calcium 8.1 mg/dL Low 8.5-10.1 Total Protein 6.5 g/dL N 6.4-8.2 Albumin 2.9 g/dL Low 3.4-5.0 Globulin 3.6 g/dL N 1.9-4.3 Alb/Glob 0.8 ratio Bilirubin,Total 0.5 mg/dL N 0.2-1.0 Sgot/Ast 14 U/L Low 15-37 35 SGPT/Alt 20 U/L N 12-78 Alkaline Phosphatase 65 U/L N 45-117 Laboratory test 04/02/2017 [facility] Lipase 279 U/L N 56-289 36 finding (315)- - CBS W/Automated 04/02/2017 [facility] White Blood 10.5 K/ uL N 3.1-10.7 Diff (315)- - Count Red Blood Count 4.44 M/uL N 3.90-5.40 Hemoglobin 14.2 gm/dL N 11.6-15.8 Hematocrit 40.8 % N 36.0-46.1 Mean Cell Volume 91.9 fl N 80.9-99.0 Mean Corpuscular HGB 32.0 pg N 25.9-32.7 Mean Corpuscular HGB Conc 34.8 g/dL High 30.8-34.3 Platelet Count 196 K/uL N 150-400 Red Cell Distri Width SD 39.5 fl N 3-47 Red Cell Distri Width %CV 12.0 % N 11.7-14.4 Mean Platelet Volume 10.0 fL N 8.9-12.4 Neut% 78.0 % High 40.4-72.8 Lymph % 14.2 % Low 20.0-42.0 Ashe % 7.2 % N 4.3-13.2 Eo% 0.5 % N 0.0-6.6 Bas% 0.1 % N 0.0-1.1 Neut# 8.19 K/uL High 1.8-7.0 Lymph # 1.49 K/uL N 1.0-4.0 Ashe # 0.76 K/uL N 0.3-0.9 Eos # 0.05 K/uL N 0.0-0.5 Baso # 0.01 K/uL N 0.0-0.1 Slide Review 04/02/2017 [facility] Slide Review . 37 (315)- - Urinalysis With 04/02/2017 [facility] Urine Color DK YELLOW Yellow Microscopic (315)- - Urine Clarity SL CLOUDY Clear Urine Glucose - Dipstick NEGATIVE mg/dL Negative Urine Bilirubin - Dipstick SMALL Abnormal Negative Urine Ketone 40 mg/dL High Negative Urine Specific Hoffman 1.025 N 1.010-1.030 Urine Blood MODERATE Abnormal Negative Urine PH 5.5 Low 6.5-7.5 Urine Protein - Dipstick 100 mg/dL High Negative Urine Urobilinogen - Dipstick 0.2 E.U./dL N 0.2-1.0 Urine Nitrite - Dipstick POSITIVE Abnormal Negative Urine Leuk Esterase SMALL Abnormal Negative Urine RBC 5-10 rbc/hpf High 0-2 Urine WBC > 50 wbc/hpf High 0-7 Urine Epithelial Cells MODERATE /lpf None Seen 38 Urine Bacteria VERY FEW None Seen Source: URINE, CLEAN CAT <SEE NOTE> 39 Urine HCG 04/02/2017 [facility] Urine HCG NEGATIVE Negative 40 (Qualitative) (315)- - (Qualitative) Source: URINE, CLEAN CAT <SEE NOTE> 41 Laboratory test finding 10/24/2016 [facility] TSH 1.87 uIU/mL 0.35-4.94 42 Free T4 1.06 ng/dL 0.70-1.48 Lipid Treatment 10/24/2016 [facility] Cholesterol 199 mg/dL 50-199 Triglycerides 103 mg/dL 30-150 HDL 53 mg/dL 45-85 43 Chol/ HDL Ratio 3.7 ratio 3.7-5.6 VLDL 21 mg/dL 2-29 LDL (Calc) 125 mg/dL 20-129 44 Alt 13 U/L 3-42 Ast 18 U/L 8-42 Laboratory test finding 10/24/2016 [facility] Vit D,25 Hydroxy 32 ng/mL 31- 100 Basic (BMP) 10/24/2016 [facility] Sodium 143 mmol/L 135-146 45 Potassium 5.2 mmol/L 3.5-5.2 Chloride# 108 mmol/L 97-110 46 Carbon Dioxide 27 mmol/L 24-34 Glucose 92 mg/dL 70-105 BUN 13 mg/dL 6-26 Creatinine 0.9 mg/dL 0.5-1.4 Calcium 10.3 mg/dL High 8.5-10.2 Non Zoe Egfr >60 >60 47 Zoe Egfr >60 >60 48 Anion Gap 13 mmol/L 7-16 49 Laboratory test finding 10/24/2016 [facility] Vitamin B12 547 pg/mL 180- 914 CBC With Auto Diff 10/24/2016 [facility] WBC 4.1 K/uL 4.1-11.0 RBC 4.69 M/uL 4.00-5.40 Hemoglobin 14.7 gm/dL 12.0-16.0 Hematocrit 43.3 % 36.0-47.0 MCV 92.3 fL 80.0-97.0 MCH 31.3 pg 27.0-32.0 MCHC 34.0 g/dL 32.0-36.0 RDW 13.0 % 11.5-14.5 PLT Count 240 K/ul 140-400 Neutrophil 45.1 % 35.0-75.0 Lymphocyte 43.3 % 16.0-52.0 Monocyte 7.2 % 2.0-10.0 Eosinophil 3.7 % 0.0-5.0 Basophil 0.7 % 0.0-4.0 Abs Neutrophils 1.8 K/uL Low 2.1-8.0 Abs Lymphocytes 1.8 K/uL 0.8-5.5 Abs Monocytes 0.3 K/uL 0.1-1.0 Abs Eosinophils 0.1 K/uL 0.0-0.5 Abs Basophils 0.0 K/uL 0.0-0.3 Affirm 09/07/2016 [facility] Trichomonas Vaginalis Negative Negative Gardnerella Vaginalis Positive Abnormal Negative Asia Species Negative Negative GC/Chlamydia By Dna 09/07/2016 [facility] Chlamydia by Dna NEGATIVE Negative Probe Probe GC by Dna Probe NEGATIVE Negative Manual Differential 11/01/2015 [facility] Neutrophils 27 % Low 35-75 50 Lymphocytes 62 % High 16-52 Atypical Lymphs 3 0-5 Monocytes 6 % 0-8 Eosinophils 2 % 0-5 Basophils 0 % 0-4 Platelet Estimate Normal Normal RBC Morphology Normal Normal Abs Neutrophils# 1.1 K/ul Low 1.8-7.7 Abs Lymphocytes# 2.5 K/ul 1.2-4.8 Abs Monocytes# 0.2 K/ul 0.0-0.8 Abs Eosinophils# 0.1 K/ul 0.0-0.5 Abs Basophils# 0.0 K/ul 0.0-0.3 Abs Atypical Lymphocytes# 0.1 K/ul 0.0-0.5 Laboratory test finding 11/01/2015 [facility] TSH 0.14 uIU/mL Low 0.35-4.94 Free T4 1.13 ng/dL 0.70-1.48 Lipid 11/01/2015 [facility] Cholesterol 197 mg/dL 50-199 Triglycerides 133 mg/dL 30-150 HDL 57 mg/dL 45-85 51 Chol/ HDL Ratio 3.5 ratio Low 3.7-5.6 VLDL 27 mg/dL 2-29 LDL (Calc) 113 mg/dL 20-129 52 Laboratory test finding 11/01/2015 [facility] Vit D,25 Hydroxy 49 ng/mL 31- 100 CBC With Auto Diff 11/01/2015 [facility] WBC 4.1 K/uL 4.1-11.0 RBC 4.52 M/uL 4.00-5.40 Hemoglobin 14.3 gm/dL 12.0-16.0 Hematocrit 41.3 % 36.0-47.0 MCV 91.2 fL 80.0-97.0 MCH 31.6 pg 27.0-32.0 MCHC 34.7 g/dL 32.0-36.0 RDW 12.6 % 11.5-14.5 PLT Count 219 K/ul 140-400 Laboratory test finding 11/01/2015 [facility] Esr 6 mm/hr 0-20 Rheumatoid Factor <10.0 IU/mL 0.0-10.0 Laboratory test finding 11/01/2015 [facility] CRP (C-Reactive) 0.36 mg/dL 0.00-0.75 Ynes Screen With 11/01/2015 [facility] Ynes Screen NEGATIVE [facility]lex-[facility] dsDNA IgG NEGATIVE Laboratory test finding 10/08/2014 [facility] TSH 0.31 uIU/mL Low 0.35-4.94 Free T4 1.39 ng/dL 0.70-1.48 Vit D,25 Hydroxy 50 ng/mL 31-100 Lipid Treatment 10/08/2014 [facility] Cholesterol 234 mg/dL High 50-199 Triglycerides 116 mg/dL 30-150 HDL 60 mg/dL 45-85 53 Chol/ HDL Ratio 3.9 ratio 3.7-5.6 VLDL 23 mg/dL 2-29 LDL (Calc) 151 mg/dL High 20-129 54 Alt 15 U/L 3-42 Ast 18 U/L 8-42 Laboratory test 05/27/2014 [facility] Troponin-I < 0.02 ng/mL 55 finding (315)- - Laboratory test 05/26/2014 [facility] Troponin-I < 0.02 ng/mL 56 finding (315)- - Comprehensive 05/26/2014 [facility] Glucose 91 mg/dL 74-106 Metabolic Panel (315)- - BUN 13 mg/dL 7-18 Creatinine 0.9 mg/dL 0.6-1.3 Glom Filtration Rate, Estimate >60 mL/min >60 If >60 mL/min >60 57 BUN/Creat 14.4 ratio Sodium 140 mmol/L 136-145 Potassium 4.0 mmol/L 3.5-5.1 Chloride 111 mmol/L High 98-107 Carbon Dioxide 23 mmol/L 21-32 Anion Gap 10 mEq/L 8-16 Calcium 8.3 mg/dL Low 8.5-10.1 Total Protein 6.7 g/dL 6.4-8.2 Albumin 3.3 g/dL Low 3.4-5.0 Globulin 3.4 g/dL 1.9-4.3 Alb/Glob 1.0 ratio Bilirubin,Total 0.3 mg/dL 0.2-1.0 Sgot/Ast 13 U/L Low 15-37 58 SGPT/Alt 17 U/L 12-78 Alkaline Phosphatase 53 U/L 45-117 Laboratory test finding 05/26/2014 [facility] CK 61 U/L 26-192 (315)- - Troponin-I < 0.02 ng/mL 59 Thyroid Stim Hormone 0.65 uIU/mL 0.36-3.74 CBC W/Automated Diff 05/26/2014 [facility] White Blood 5.4 K/uL 3.1-10.7 (315)- - Count Red Blood Count 4.20 M/uL 3.90-5.40 Hemoglobin 14.1 gm/dL 11.6-15.8 Hematocrit 39.3 % 36.0-46.1 Mean Cell Volume 93.6 fl 80.9-99.0 Mean Corpuscular HGB 33.6 pg High 25.9-32.7 Mean Corpuscular HGB Conc 35.9 g/dL High 30.8-34.3 Platelet Count 236 K/uL 155-360 Red Cell Distri Width SD 41.7 fl 3-47 Red Cell Distri Width %CV 12.3 % 11.7-14.4 Mean Platelet Volume 10.4 fL 8.9-12.4 Neut% 37.1 % Low 40.4-72.8 Lymph % 53.5 % High 17.0-46.1 Ashe % 6.1 % 4.3-13.2 Eo% 2.9 % 0.0-6.6 Bas% 0.4 % 0.0-1.1 Neut# 2.02 K/uL 1.0-7.0 Lymph # 2.91 K/uL 0.8-3.4 Ashe # 0.33 K/uL 0.3-0.9 Eos # 0.16 K/uL 0.0-0.5 Baso # 0.02 K/uL 0.0-0.1 Laboratory test 05/26/2014 [facility] D-Dimer, < 0.22 60 finding (315)- - Quantitative ug/mL Laboratory test 04/09/2014 [facility] Alt 17.0 U/L 9.0-52 finding .0 Ast 18.0 U/L 14.0-36.0 BUN 11.0 mg/dL 7.0-18.0 BUN/Creat Ratio 13.8 ratio 12.0-20.0 Calcium 9.7 mg/dL 8.7-10.5 Chloride 107.0 mmol/L 98.0-107.0 Co2 24.0 mmol/L 22.0-30.0 Creatinine-Serum 0.8 mg/dL 0.7-1.2 FT4 1.40 ng/dL 0.75-1.54 Glucose 99.0 mg/dL 75.0-110.0 Potasium 4.0 mmol/L 3.6-5.0 Sodium 139.0 mmil/L 137.0-145.0 TSH 0.24 uIU/ml Low 0.50-6.00 Vitamin D 47.7 ng/mL 30.0-96.0 eGFR 84.4 Lipid Panel 04/09/2014 [facility] Chol/HDL Ratio 3.8 ratio Cholesterol 223.0 mg/dL High 50.0-199.0 HDL 59.0 mg/dL 29.0-86.0 LDL, Calculated 136.8 mg/dL High 20.0-129.0 Triglycerides 136.0 mg/dL 30.0-249.0 vLDL 27.2 ng/dL Laboratory test finding 07/28/2013 [facility]D Import FT4 1.04 ng/dL 0.75- 1.54 TSH 3.41 uIU/ml 0.50-6.00 Laboratory test finding 01/20/2013 N[facility]N/CCD Import % Baso. 1.0 % 0.0-2.0 % Eos. 3.0 % 0.0-4.0 % Lymph 33 % 20-44 % Ashe 5.6 % 2.0-10.0 % Jan 58 % 50-70 Absolute Baso. 0.1 K/ul 0.0-0.3 Absolute Eos. 0.2 K/ul 0.0-0.5 Absolute Lymph. 2.1 K/ul 0.8-4.8 Absolute Ashe. 0.3 K/ul 0.1-1.0 Absolute Jan. 3.62 K/ul 2.05-7.63 FT4 1.37 ng/dL 0.75-1.54 HCT 44.4 % 37.0-51.0 HGB 14.5 Gm/dl 12.0-16.0 MCH 31.7 pg 26.0-32.0 MCHC 32.8 g/dL 31.0-36.0 MCV 96.5 Fl 80.0-97.0 MPV 6.7 fL 6.0-10.0 PLT 277 K/ul 140-440 RBC 4.6 M/ul 4.2-6.3 RDW 11.7 % 11.5-14.5 TSH 1.91 uIU/ml 0.50-6.00 Vitamin B12 397.0 pg/mL 200.0-900.0 WBC 6.3 K/ul 4.1-10.9 Lipid Panel 01/20/2013 N2N/CCD Import Chol/HDL Ratio 3.7 ratio Cholesterol 208.0 mg/dL High 50.0-199.0 HDL 56.0 mg/dL 45.0-86.0 LDL, Calculated 125.8 mg/dL 20.0-129.0 Triglycerides 131.0 mg/dL 30.0-150.0 vLDL 26.2 ng/dL Laboratory test 08/04/2012 N[facility]N/CCD Import Culture Urine See Note 61 finding Laboratory test 08/04/2012 [facility]N/CCD Import Bas% 0.5 % 0.0-1.1 finding Baso # 0.03 K/uL 0.0-0.1 Eo% 3.2 % 0.0-6.6 Eos # 0.19 K/uL 0.0-0.5 FT4 1.11 ng/dL 0.75-1.54 Hematocrit 43.5 % 36.0-46.1 Hemoglobin 15.1 gm/dL 11.6-15.8 Lymph # 2.35 K/uL 0.8-3.4 Lymph % 39.0 % 17.0-46.1 Mean Cell Volume 95.0 fl 80.9-99.0 Mean Corpuscular HGB 33.0 pg High 25.9-32.7 Mean Corpuscular HGB Conc 34.7 g/dL High 30.8-34.3 Mean Platelet Volume 10.5 fL 8.9-12.4 Ashe # 0.37 K/uL 0.3-0.9 Ashe % 6.1 % 4.3-13.2 Neut# 3.08 K/uL 1.0-7.0 Neut% 51.2 % 40.4-72.8 Platelet Count 249 K/uL 155-360 Red Blood Count 4.58 M/uL 3.90-5.40 Red Cell Distri Width %CV 13.0 % 11.7-14.4 Red Cell Distri Width SD 44.6 fl 3-47 TSH 8.62 uIU/ml High 0.50-6.00 Vitamin D 70.9 ng/mL 30.0-100.0 White Blood Count 6.0 K/uL 3.1-10.7 Lipid Panel 08/04/2012 N2N/CCD Import Chol/HDL Ratio 3.8 ratio Cholesterol 246.0 mg/dL High 50.0-199.0 HDL 65.0 mg/dL 45.0-86.0 LDL, Calculated 147.8 mg/dL High 20.0-129.0 Triglycerides 166.0 mg/dL High 30.0-150.0 vLDL 33.2 ng/dL Laboratory test 08/04/2012 [facility]N/CCD Import Antigliadin Abs, IgA 3 units 0 -19 62 finding Antigliadin Abs, IgG 6 units 0-19 63 Endomysial IgA Antibody Negative Negative Immunoglobulin A 121 mg/dL 91-414 t-Transglutaminase IgA <2 U/mL 0-3 64 t-Transglutaminase IgG <2 U/mL 0-5 65 Laboratory test 02/18/2012 [facility]/Vir[facility] Import Culture Urine See Note 66 finding Laboratory test 02/04/2012 [facility] Import Free T4 1.71 ng/dL High 0.75- 1.5 finding 4 TSH 2.921 uIU/ml 0.50-6.00 Vitamin D,25-Hydroxy 39.2 ng/mL 30.0-100.0 67 Lipid Panel 02/04/2012 N[facility]N/CCD Import Chol/HDL Ratio 3.6 68 Cholesterol 196 mg/dL 50-199 HDL Cholesterol 54 mg/dL 45-86 LDL 120 mg/dL 20-129 Triglycerides 108 mg/dL 30-150 VLDL Cholesterol 22 mg/dL Laboratory test finding 08/02/2011 [facility] Free T4 1.14 ng/dL 0.75-1.54 TSH 0.365 uIU/ml Low 0.50-6.00 Vitamin D,25-Hydroxy 26.0 ng/mL Low 30.0-100.0 69 Laboratory test finding 02/01/2011 [facility] Import Alt 16 U/L 9-52 Ast 22 U/L 14-36 Free T4 1.33 ng/dL 0.75-1.54 TSH 0.960 uIU/ml 0.50-6.00 Vitamin D,25-Hydroxy 30.1 ng/mL Low 32.0-100.0 70 Lipid Panel 02/01/2011 [facility] Chol/HDL Ratio 3.8 71 Cholesterol 191 mg/dL 50-199 HDL Cholesterol 50 mg/dL 45-86 LDL 119 mg/dL 20-129 Triglycerides 112 mg/dL 30-150 VLDL Cholesterol 22 mg/dL Laboratory test finding 09/11/2010 [facility] Anion Gap 13 mmol/L 10 -20 72 BUN 12 mg/dL 7-18 BUN/CR Ratio 16.0 Ratio 12-20 Calcium 9.3 mg/dL 8.7-10.5 Carbon Dioxide 24 mmol/L 22-30 Chloride 106 mmol/L 98-107 Creatinine, Serum 0.7 mg/dL 0.7-1.2 Free T4 1.67 ng/dL High 0.75-1.54 Glucose 89 mg/dL 65-105 Potassium 4.6 mmol/L 3.6-5.0 Sodium 138 mmol/L 137-145 TSH 1.054 uIU/ml 0.50-6.00 Vitamin D,25-Hydroxy 16.7 ng/mL Low 32.0-100.0 73 Lipid Panel 09/11/2010 [facility]N/CCD Import Chol/HDL Ratio 3.1 74 Cholesterol 201 mg/dL High 50-199 HDL Cholesterol 64 mg/dL 45-86 LDL 118 mg/dL 20-129 Triglycerides 97 mg/dL 30-150 VLDL Cholesterol 19 mg/dL Laboratory test 07/11/2010 N2N/CCD Import Breast Biopsy - See Note 75 finding Permanent Only Laboratory test 07/10/2010 [facility]N/CCD Import HCG Serum, Negative 76 finding Qualitative Laboratory test 01/31/2010 N[facility]N/CCD Import Alt 18 U/L 9-52 77 finding Anion Gap 10 mmol/L 10-20 Ast 22 U/L 14-36 BUN 12 mg/dL 7-18 BUN/CR Ratio 16.7 Ratio 12-20 Calcium 9.5 mg/dL 8.7-10.5 Carbon Dioxide 25 mmol/L 22-30 Chloride 106 mmol/L 98-107 Creatinine, Serum 0.7 mg/dL 0.7-1.2 Free T4 1.77 ng/dL High 0.75-1.54 Glucose 95 mg/dL 65-105 Potassium 4.3 mmol/L 3.6-5.0 Sodium 137 mmol/L 137-145 TSH 0.289 uIU/ml Low 0.50-6.00 Vitamin D,25-Hydroxy 32.3 ng/mL 32.0-100.0 78 Lipid Panel 01/31/2010 [facility]N/CCD Import Chol/HDL Ratio 4.0 79 Cholesterol 198 mg/dL 50-199 HDL Cholesterol 49 mg/dL 45-86 LDL 122 mg/dL 20-129 Triglycerides 136 mg/dL 30-150 VLDL Cholesterol 27 mg/dL Laboratory test finding 06/07/2009 N2N/CCD Import Free T4 1.46 ng/dL 0.75-1.54 TSH 4.256 uIU/ml 0.50-6.00 Vitamin D,25-Hydroxy 22.1 ng/mL Low 32.0-100.0 80 Lipid Panel 06/07/2009 N2N/CCD Import Chol/HDL Ratio 3.5 81 Cholesterol 218 mg/dL High 50-199 HDL Cholesterol 61 mg/dL 45-86 LDL 133 mg/dL High 20-129 Triglycerides 120 mg/dL 30-150 VLDL Cholesterol 24 mg/dL Vitamin B12 And Folate 12/02/2008 [facility] Import Folic Acid 13.5 ng/mL 6.0-15.4 Vitamin B12 370 pg/mL 208-964 Laboratory test finding 12/02/2008 [facility]ally Import Serum Iron 110 g/dL 25-156 Triiodothyronine,Free 2.31 pg/mL 1.45-3.48 Vitamin D,25-Hydroxy 26.4 ng/mL Low 32.0-100.0 82 Laboratory test 12/02/2008 [facility]N/Vir[facility] Import Absolute 0.065 K/ul 0.0-0.3 finding Basophils Absolute Eosinophils 0.113 K/ul 0.0-0.5 Absolute Lymphocytes 2.34 K/ul 0.8-4.8 Absolute Monocytes 0.226 K/ul 0.1-1.0 Absolute Neutrophils 1.29 K/ul Low 2.05-7.63 Anion Gap 13 mmol/L 10-20 BUN 13 mg/dL 7-18 BUN/CR Ratio 15.5 Ratio 12-20 Basophil 1.6 % 0-2 Calcium 9.3 mg/dL 8.7-10.5 Carbon Dioxide 24 mmol/L 22-30 Chloride 108 mmol/L High 98-107 Creatinine, Serum 0.9 mg/dL 0.7-1.2 Eosinophil 2.8 % 0-4 Free T4 1.25 ng/dL 0.75-1.54 Glucose 84 mg/dL 65-105 Hematocrit 41.5 % 37.0-51.0 Hemoglobin 13.9 GM/dl 12.0-16.0 Lymphocytes 58.0 % High 20-44 MCH 30.8 pg 26.0-32.0 MCHC 33.5 g/dL 31.0-36.0 MCV 92 FL 80-97 Monocytes 5.6 % 2-10.0 Neutrophils 32.0 % Low 50-70 Platelet Count 200 K/ul 140-440 Potassium 4.4 mmol/L 3.6-5.0 RBC 4.51 M/ul 4.2-6.3 RDW 11.8 % 11.5-14.5 Sodium 141 mmol/L 137-145 TSH 3.242 uIU/ml 0.50-6.00 WBC 4.0 K/ul Low 4.1-10.9 Lipid Panel 06/03/2008 [facility]/Virally Import Chol/HDL Ratio 4.2 83 Cholesterol 248 mg/dL High 50-199 HDL Cholesterol 58 mg/dL 45-86 LDL 164 mg/dL High 20-129 Triglycerides 130 mg/dL 30-150 VLDL Cholesterol 26 mg/dL Laboratory test finding 06/03/2008 N2N/CCD Import Alt 18 U/L 9-52 Anion Gap 14 mmol/L 10-20 Ast 21 U/L 14-36 BUN 10 mg/dL 7-18 BUN/CR Ratio 12.4 Ratio 12-20 Calcium 9.7 mg/dL 8.7-10.5 Carbon Dioxide 25 mmol/L 22-30 Chloride 108 mmol/L High 98-107 Creatinine, Serum 0.8 mg/dL 0.7-1.2 Free T4 1.75 ng/dL High 0.75-1.54 Glucose 83 mg/dL 65-105 Potassium 4.6 mmol/L 3.6-5.0 Sodium 142 mmol/L 137-145 TSH 1.885 uIU/ml 0.50-6.00 Vitamin D,25-Hydroxy 29.4 ng/mL Low 32.0-100.0 84 Laboratory test finding 12/01/2007 N2N/CCD Import Free T4 1.31 ng/dL 0.75-1.54 TSH 3.814 uIU/ml 0.50-6.00 Laboratory test 07/17/2007 N2N/CCD Import TSH 2.940 uIU/ml 0.50-6.00 finding Laboratory test 03/04/2007 N2N/CCD Import TSH 7.584 uIU/ml High 0.50- 6.00 85 finding Laboratory test 08/29/2006 N2N/CCD Import TSH 2.706 uIU/ml 0.50-6.00 86 finding Laboratory test 07/10/2006 N2N/CCD Import TSH 0.476 uIU/ml Low 0.50-6.00 87 finding Lipid Panel 07/10/2006 N2N/CCD Import Chol/HDL 4.1 88 Ratio Cholesterol 216 mg/dL High 50-199 HDL Cholesterol 52 mg/dL 29-86 LDL 136 mg/dL High 20-129 Triglycerides 140 mg/dL 30-249 VLDL Cholesterol 28 mg/dL Laboratory test finding 04/22/2006 N2N/CCD Import TSH 5.799 uIU/ml 0.50- 6.00 Laboratory test finding 02/22/2006 N2N/CCD Import TSH 13.196 uIU/ml High 0.50-6.00 89 Laboratory test finding 11/20/2005 N2N/CCD Import Alt 18 U/L 9-52 Ast 22 U/L 14-36 TSH 8.536 uIU/ml High 0.50-6.00 Lipid Panel 11/20/2005 N2N/CCD Import Chol/HDL Ratio 3.47 90 Cholesterol 219 mg/dL High 50-199 HDL Cholesterol 63 mg/dL 29-86 LDL 136 mg/dL High 20-129 Triglycerides 102 mg/dL 30-249 VLDL Cholesterol 20 mg/dL 1 Unless otherwise specified, testing performed by [facility] [address] [place] [id number] 2 Microbiology results SOURCE Clean Catch Midstream FINAL RESULT No growth 3 today 4 FSH Female Normal Values: Mid-Follicular: 3.8-8.8 mIU/mL Mid-cycle Peak: 4.5-22.5 mIU/mL Mid-Luteal: 1.8-5.1 mIU/mL Post-menopausal:16.7-113.6 mIU/mL 5 Lutenizing Hormone Female Normal Values: Mid-Follicular: 2.1-10.9 mIU/mL Mid-cycle Peak: 19.2-103.0 mIU/mL Mid-Luteal: 1.2-12.9 mIU/mL Post-menopausal:10.9-58.6 mIU/mL 6 Updated reference range on new analyzer 7 Updated reference range on new analyzer 8 Concerning GFR Guidelines for Americans: Normal function or mild renal disease, if clinically at risk: >/=60 mL/min Moderately decreased: 30-59 Severely decreased: 15-29 Renal failure: <15 9 Concerning GFR Guidelines: Normal function or mild renal disease, if clinically at risk: >/=60 mL/min Moderately decreased: 30-59 Severely decreased: 15-29 Renal failure: <15 Glomerular Filtration Rate (GFR) is estimated based on the MDRD equation, which assumes a steady state for creatinine as recommended by the National Kidney Disease Education Program in conjunction with the National Institutes of Health and the National Kidney Foundation. Clinical conditions in which it may be necessary to measure GFR by using clearance methods include extremes of age and body size, severe malnutrition or obesity, diseases of skeletal muscle, paraplegia or quadriplegia, vegetarian diet, rapidly changing kidney function, and calculation of the dose of potentially toxic drugs that are excreted by the kidneys. 10 Updated Reference Range 11 ESTRADIOL REFERENCE RANGE: MENSTRUATING FEMALES FOLLICULAR PHASE 21-165 PG/ML MIDCYCLE 50-367 PG/ML LUTEAL PHASE 40-259 PG/ML POSTMENOPAUSAL <40 PG/ML Unless otherwise specified, testing performed by [facility] [address] [place] [id number] 12 6mos 13 6 mos 14 SCHEDULE 1 WEEK PRIOR TO NEXT VISIT 15 Clinical Guidelines for recommended serum 25(OH)Vitamin D Deficient at less than 20 ng/mL Insufficient at 20 to <30 ng/mL Sufficient at 30-100 ng/mL Toxicity at greater than 100 ng/mL 16 Updated reference range on new analyzer 17 Updated reference range on new analyzer 18 Concerning GFR Guidelines for Americans: Normal function or mild renal disease, if clinically at risk: >/=60 mL/min Moderately decreased: 30-59 Severely decreased: 15-29 Renal failure: <15 19 Concerning GFR Guidelines: Normal function or mild renal disease, if clinically at risk: >/=60 mL/min Moderately decreased: 30-59 Severely decreased: 15-29 Renal failure: <15 Glomerular Filtration Rate (GFR) is estimated based on the MDRD equation, which assumes a steady state for creatinine as recommended by the National Kidney Disease Education Program in conjunction with the National Institutes of Health and the National Kidney Foundation. Clinical conditions in which it may be necessary to measure GFR by using clearance methods include extremes of age and body size, severe malnutrition or obesity, diseases of skeletal muscle, paraplegia or quadriplegia, vegetarian diet, rapidly changing kidney function, and calculation of the dose of potentially toxic drugs that are excreted by the kidneys. 20 Updated reference range on new analyzer 21 Microbiology results SOURCE Random urine FINAL RESULT No growth 22 PYELONEPHRITIS, ABD PAIN 23 Note: Persistent reduction for 3 months or more in an eGFR <60 mL/min/1.73 m2 defines CKD. Patients with eGFR values >/=60 mL/min/1.73 m2 may also have CKD if evidence of persistent proteinuria is present. The original MDRD equation for estimated GFR is not valid for patients less than 18 years of age. Additional information may be found at www.kdoqi.org. 24 NO GROWTH: FINAL REPORT 25 NO GROWTH: FINAL REPORT 26 NO GROWTH: FINAL REPORT 27 DX WITH UTI 03/31 @ [facility], PAIN IS WORSE 28 CULTURE TO FOLLOW 29 URINE, CLEAN CATCH 30 PYELONEPHRITIS, ABD PAIN 31 NO GROWTH: FINAL REPORT 32 NO GROWTH: FINAL REPORT 33 DX WITH UTI 03/31 @ [facility], PAIN IS WORSE 34 Note: Persistent reduction for 3 months or more in an eGFR <60 mL/min/1.73 m2 defines CKD. Patients with eGFR values >/=60 mL/min/1.73 m2 may also have CKD if evidence of persistent proteinuria is present. The original MDRD equation for estimated GFR is not valid for patients less than 18 years of age. Additional information may be found at www.kdoqi.org. 35 Values below the stated reference ranges of AST and ALT can be seen in normal populations. Clinical correlation is suggested. 36 CALLED NAM IN ER, CHEM TUBES HEMOLYZED NEED REDRAW AT 0851 04/02/17 by [facility] 37 Instrument flagged sample for slide review. Less than 10% Bands seen, no other immature WBC's seen. RBC morphology essentially normal. Platelet estimate=NORMAL 38 POSSIBLE UROGENITAL CONTAMINATION. 39 URINE, CLEAN CATCH 40 FIRST MORNING SPECIMENS GENERALLY CONTAIN THE HIGHEST CONCENTRATION OF HCG AND ARE RECOMMENDED FOR EARLY DETECTION OF . Method: Quidel QuickVue One-Step Immunoassay 41 URINE, CLEAN CATCH 42 SCHEDULE 1 WEEK PRIOR TO NEXT VISIT 43 Per NCEP ATP III Guidelines: Results lower than 40 mg/dL are suggestive of increased risk for coronary artery disease. Results > or=to 60 mg/dL are considered a negative risk factor. 44 Per NCEP ATP III Guidelines: Normal Population <130 Patients with medical conditions: CHD/DM Optimal: <100 Borderline high: 130-159 High: 160-189 Very high: >189 45 Updated reference range on new analyzer 46 Updated reference range on new analyzer 47 Concerning GFR Guidelines: Normal function or mild renal disease, if clinically at risk: >/=60 mL/min Moderately decreased: 30-59 Severely decreased: 15-29 Renal failure: <15 Glomerular Filtration Rate (GFR) is estimated based on the MDRD equation, which assumes a steady state for creatinine as recommended by the National Kidney Disease Education Program in conjunction with the National Institutes of Health and the National Kidney Foundation. Clinical conditions in which it may be necessary to measure GFR by using clearance methods include extremes of age and body size, severe malnutrition or obesity, diseases of skeletal muscle, paraplegia or quadriplegia, vegetarian diet, rapidly changing kidney function, and calculation of the dose of potentially toxic drugs that are excreted by the kidneys. 48 Concerning GFR Guidelines for Americans: Normal function or mild renal disease, if clinically at risk: >/=60 mL/min Moderately decreased: 30-59 Severely decreased: 15-29 Renal failure: <15 49 Updated reference range on new analyzer 50 TODAY 51 Per NCEP ATP III Guidelines: Results lower than 40 mg/dL are suggestive of increased risk for coronary artery disease. Results > or=to 60 mg/dL are considered a negative risk factor. 52 Per NCEP ATP III Guidelines: Normal Population <130 Patients with medical conditions: CHD/DM Optimal: <100 Borderline high: 130-159 High: 160-189 Very high: >189 53 Per NCEP ATP III Guidelines: Results lower than 40 mg/dL are suggestive of increased risk for coronary artery disease. Results > or=to 60 mg/dL are considered a negative risk factor. 54 Per NCEP ATP III Guidelines: Normal Population <130 Patients with medical conditions: CHD/DM Optimal: <100 Borderline high: 130-159 High: 160-189 Very high: >189 55 0.0 - 0.045 ng/mL: Normal 0.046 - 0.5 ng/mL: Suggestive 0.6 - 1.5 ng/mL: Consistent 56 0.0 - 0.045 ng/mL: Normal 0.046 - 0.5 ng/mL: Suggestive 0.6 - 1.5 ng/mL: Consistent 57 Note: Persistent reduction for 3 months or more in an eGFR <60 mL/min/1.73 m2 defines CKD. Patients with eGFR values >/=60 mL/min/1.73 m2 may also have CKD if evidence of persistent proteinuria is present. The original MDRD equation for estimated GFR is not valid for patients less than 18 years of age. Additional information may be found at www.kdoqi.org. 58 Values below the stated reference ranges of AST and ALT can be seen in normal populations. Clinical correlation is suggested. 59 0.0 - 0.045 ng/mL: Normal 0.046 - 0.5 ng/mL: Suggestive 0.6 - 1.5 ng/mL: Consistent 60 <=0.49 ug/mL - Low likelihood of DIC, DVT or Pulmonary Embolism >0.49 ug/mL - Additional testing should be done to rule out DIC, DVT, or Pulmonary embolism as clinically indicated. ([facility] has established a 97.89% negative predictive value for thrombotic disease when a cutoff value of 0.5 ug/mL is used.) 61 COLONY COUNT ! 10,000 - 20,000 CFU/ml Organism 1 ! MIXED URETHRAL SONALI 62 Negative 0 - 19 Weak Positive 20 - 30 Moderate to Strong Positive >30 63 Negative 0 - 19 Weak Positive 20 - 30 Moderate to Strong Positive >30 64 Negative 0 - 3 Weak Positive 4 - 10 Positive >10 Tissue Transglutaminase ( tTG) has been identified as the endomysial antigen. Studies have demonstr- ated that endomysial IgA antibodies have over 99% specificity for gluten sensitive enteropathy. 65 Negative 0 - 5 Weak Positive 6 - 9 Positive >9 Performed at: - [facility] [id number] Dentistry Teacher: Cony Calhoun MD, Phone: [phone] 66 COLONY COUNT ! 10,000 - 20,000 CFU/ml Organism 1 ! URETHRAL SONALI 67 Vitamin D deficiency has been defined by the Justice of Medicine and an Endocrine Society practice guideline as a level of serum 25-OH vitamin D less than 20 ng/mL (1,2). The Endocrine Society went on to further define vitamin D insufficiency as a level between 21 and 29 ng/mL (2). 1. IOM (Justice of Medicine). 2010. Dietary reference intakes for calcium and D. [place]: The National Academies Press. 2. Julia MF, Zuhair [place], Mari SOLITARIO, et al. Evaluation, treatment, and prevention of vitamin D deficiency: an Endocrine Society clinical practice guideline. JCEM. 2010; 96(7):1911-30. Performed at: - [facility] [address] [place], [place] [id number] Dentistry Teacher: Cony Calhoun MD, Phone: [phone] 68 Normal Range: Male: <4.98 Female: <4.45 69 Vitamin D deficiency has been defined by the Justice of Medicine and an Endocrine Society practice guideline as a level of serum 25-OH vitamin D less than 20 ng/mL (1,2). The Endocrine Society went on to further define vitamin D insufficiency as a level between 21 and 29 ng/mL (2). 1. IOM (Justice of Medicine). 2010. Dietary reference intakes for calcium and D. [place]: The National Academies Press. 2. Julia MF, Zuhair LIRA, Mari SOLITARIO, et al. Evaluation, treatment, and prevention of vitamin D deficiency: an Endocrine Society clinical practice guideline. JCEM. 2010; 96(7):1911-30. Performed at: [address] [id number] Dentistry Teacher: Kayden Giordano MD, Phone: [phone] 70 Effective March 26, 2011 Vitamin D, 25-Hydroxy reference intervals will be changing to 30-100. Recent studies consider the lower limit of 32.0 ng/mL to be a threshold for optimal health. Wisam RUDOLPH. J Nutr. 2004;135(2):317-22. Performed at: [address] [id number] Dentistry Teacher: Kayden Giordano MD, Phone: [phone] 71 Normal Range: Male: <4.98 Female: <4.45 72 FASTING SCHEDULE IN 6 WEEKS 73 Recent studies consider the lower limit of 32.0 ng/mL to be a threshold for optimal health. Wisam RUDOLPH. J Nutr. 2004;135(2):317-22. Performed at: [address] [id number] Dentistry Teacher: Kayden Giordano MD, Phone: [phone] 74 Normal Range: Male: <4.98 Female: <4.45 75 OPERATION/PROCEDURE Left breast biopsy. DIAGNOSIS: "LEFT BREAST MASS, LUMPECTOMY": FIBROCYSTIC CHANGE CONSISTING OF STROMAL FIBROSIS, DUCTAL DILATION, APOCRINE METAPLASIA, MILD DUCTAL HYPERPLASIA WITHOUT ATYPIA, SEE COMMENT. KAMINI/kalin INTERPRETATION COMMENT The histologic features do not suggest a process which would have manifested clinically as a discrete mass. Correlation with post procedure mammograms and/or physical exam is suggested to assess adequacy of sampling of the index lesion. GROSS Received in formalin labeled, "LEFT BREAST MASS" is a piece of johnson-yellow, soft fibroadipose tissue measuring 6.3 cm. from medial to lateral, 5.2 cm. from anterior to posterior and 3.4 cm. from superior to inferior. One long suture johnson the medial margin and two long sutures del the deep margin. The margins are inked as follows: superior-blue, inferior-green, medial-red, lateral-yellow, anterior-orange, posterior-black. The specimen is serially sectioned from medial to lateral. On cut surface it shows irregular fibrosis without evidence of discreet mass. No evidence of necrosis nor hemorrhage is seen. Auditor Internal sections are submitted in five blocks. JW/arelif MICROSCOPIC Sections show several changes characterized by: an increase in stromal fibrosis, ductal dilation, cyst formation lined by apocrine cells with hobnail shape and deep eosinophilic cytoplasm. PRE OPERATIVE DIAGNOSIS Left brest mass. REVIEW CODE CODE: I ----- TANK Dong MD 07/12/10 1418 ----- 76 QUERY: @[facility] Pat ID: QUERY: @[facility] Req #: [phone] FASTING 78 Recent studies consider the lower limit of 32.0 ng/mL to be a threshold for optimal health. Joel BW. J Nutr. 2005 Jun;135(2):317-22. Performed at: RN - [facility] [id number] Dentistry Teacher: Kayden Giordano MD, Phone: [phone] Normal Range: Male: <4.98 Female: <4.45 80 Recent studies consider the lower limit of 32.0 ng/mL to be a threshold for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
[2018-08-20 08:16] VITALS: BP 131/86
--- NOTE | 2018-08-20 08:47 | UC ---
Throat Pain/Nasal Macho HPI - HPI Summary HPI Summary: 43-year-old woman comes in with a chief complaint of 5 days of upper respiratory tract infection symptoms. Started with a sore throat about 5 days ago. She has some rhinorrhea. Since then she's developed chest congestion wheezing chills and body aches. She's had wheezing in the past with infections. She does not have an albuterol inhaler at this time. The myalgias did not start on the first day of illness. She is a smoker which makes the breathing worse. She is requesting smoking cessation. Has sore left nostril that crusts x 1 month. - History of Current Complaint Chief Complaint: UCRespiratory Stated Complaint: CONGESTION BODYACHES COUGH Time Seen by Provider: 08/20/18 08:31 Hx Last Menstrual Period: 07/15/18 Pain Intensity: 0 - Allergies/Home Medications Allergies/Adverse Reactions: Allergies Allergy/AdvReac Type Severity Reaction Status Date / Time No Known Allergies Allergy Verified 08/20/18 08:09 Home Medications: Home Medications Dm/P-Ephed/Acetaminoph/Doxylam [Vi Speer Plus Severe 10-12.5-20-650 mg] 1 pow PO BID PRN 08/20/18 [History Confirmed 08/20/18] Escitalopram * [Lexapro 10 mg (NF)] 10 mg PO BEDTIME 08/20/18 [History Confirmed 08/20/18] PMH/Surg Hx/FS Hx/Imm Hx Previously Healthy: Yes Endocrine History: Hypothyroidism GI/ History: Gastroesophageal Reflux - Surgical History Surgical History: Yes Surgery Procedure, Year, and Place: TYMPANIC MEMBRANE PATCH 1989.C SECTION 1994, . LEFT BREAT LUMPECTOMY [facility]. LEFT BREAST LUMPECTOMY 08/16/17 - Family History Known Family History: Positive: Cardiac Disease - Social History Alcohol Use: None Substance Use Type: None Smoking Status (MU): Light Every Day Tobacco Smoker Type: Cigarettes Amount Used/How Often: 4 A DAY Length of Time of Smoking/Using Tobacco: since age 12 Have You Smoked in the Last Year: No When Did the Patient Quit Smoking/Using Tobacco: 6 months ago Household Exposure Type: Cigarettes - Immunization History Most Recent Influenza Vaccination: 9528-9612 Vaccination Up to Date: No Review of Systems All Other Systems Reviewed And Are Negative: Yes Constitutional: Positive: Chills Skin: Positive: Other - see hpi Eyes: Positive: Negative ENT: Positive: Sore Throat, Nasal Discharge, Sinus Congestion, Other - see hpi Respiratory: Positive: Shortness Of Breath, Cough, Other - see hpi Cardiovascular: Positive: Negative Gastrointestinal: Positive: Negative Motor: Positive: Negative Neurovascular: Positive: Negative Musculoskeletal: Positive: Myalgia Neurological: Positive: Negative Psychological: Positive: Negative Is Patient Immunocompromised?: No Physical Exam Triage Information Reviewed: Yes Appearance: No Pain Distress, Well-Nourished, Ill-Appearing - mild Vital Signs: Initial Vital Signs Temp 98.7 F 08/20/18 08:11 Pulse 67 08/20/18 08:11 Resp 16 08/20/18 08:11 BP 131/86 08/20/18 08:11 Pulse Ox 96 08/20/18 08:11 Vital Signs Reviewed: Yes Eye Exam: Normal Eyes: Positive: Conjunctiva Clear ENT: Positive: Nasal congestion, Nasal drainage - sore left nare consistent with impetigo, TMs normal Neck exam: Normal Neck: Positive: Supple Respiratory: Positive: No respiratory distress, No accessory muscle use, Rhonchi Cardiovascular: Positive: RRR Musculoskeletal Exam: Normal Musculoskeletal: Positive: Strength Intact, ROM Intact Neurological Exam: Normal Neurological: Positive: Alert Psychological Exam: Normal Psychological: Positive: Age Appropriate Behavior Skin Exam: Normal Throat Pain/Nasal Course/Dx - Course Course Of Treatment: DISCUSSED VIRAL VERSES BACTERIAL INFECTION AND THE ROLE OF ANTIBIOTICS. THE PATIENT WISHES TO BE ON ANTIBIOTICS AT THIS TIME. Prefers nicotine inhaler for smoking cessation. Will F/U PMD. Mupirocin for nasal sore. Will F/U PMD if not completely improved. - Differential Dx/Diagnosis Provider Diagnosis: Bronchitis with bronchospasm, Impetigo, unspecified, Smoking Discharge - Sign-Out/Discharge Documenting (check all that apply): Patient Departure All imaging exams completed and their final reports reviewed: No Studies - Discharge Plan Condition: Stable Disposition: HOME Prescriptions: Albuterol HFA INHALER* [Ventolin HFA Inhaler*] 2 puff INH Q4H PRN #1 mdi PRN Reason: Wheezing Azithromyxin SALAS (NF) [Z-Salas (Zithromax) 250 mg tabs #6] 2 tab PO .TODAY, THEN 1 DAILY #6 tab Mupirocin 1 applic TOPICAL BID #22 gm Nicotine Inhaler* 10 mg INH Q2H PRN #20 amp PRN Reason: Cravings Patient Education Materials: How to Stop Smoking (ED), Impetigo (ED), Acute Bronchitis (ED), Bronchospasm (ED) Forms: *Work Release Referrals: Keely Monge MD [Primary Care Provider] - Additional Instructions: FOLLOW UP WITH YOUR DOCTOR IF NOT COMPLETELY IMPROVED. GET REEVALUATED SOONER FOR WORSENING OF YOUR CONDITION OR QUESTIONS OR CONCERNS. - Billing Disposition and Condition Condition: STABLE Disposition: Home
== END 2018-08-20 08:55 | disposition home or self-care (01) ==
LOC: UCCORT 07:52
DX: J20.9 Acute bronchitis, unspecified (principal); L01.00 Impetigo, unspecified; F17.210 Nicotine dependence, cigarettes, uncomplicated
CPT/HCPCS: 99212; G0463

== ENCOUNTER 2019-02-25 08:09 | Emergency (ER) | payer OTHER ==
[2019-02-25 08:46] VITALS: BP 121/77
--- NOTE | 2019-02-25 09:23 | ED ---
Throat Pain/Nasal Congestion - HPI Summary HPI Summary: 44 yr old female with the complaint of runny nose, sore throat, coughing. Onset of symptoms was 6 days ago. No fever. No SOB. 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 She denies chest pain. she denies smoking. - History of Current Complaint Chief Complaint: UCRespiratory Time Seen by Provider: 02/25/19 08:35 - Allergies/Home Medications Allergies/Adverse Reactions: Allergies Allergy/AdvReac Type Severity Reaction Status Date / Time No Known Allergies Allergy Verified 02/25/19 08:27 Home Medications: Home Medications Control Pill 1 tab PO DAILY 02/25/19 [History Confirmed 02/25/19] PMH/Surg Hx/FS Hx/Imm Hx Endocrine/Hematology History: Reports: Hx Thyroid Disease Denies: Hx Diabetes Cardiovascular History: Denies: Hx Congestive Heart Failure, Hx Deep Vein Thrombosis, Hx Hypertension , Hx Myocardial Infarction, Hx Pacemaker/ICD Respiratory History: Denies: Hx Asthma, Hx Chronic Obstructive Pulmonary Disease (COPD), Hx Lung Cancer, Hx Pneumonia, Hx Pulmonary Embolism GI History: Reports: Hx Gastroesophageal Reflux Disease - ON OMPREZOLE, Hx Irritable Bowel Denies: Hx Gall Bladder Disease, Hx Gastrointestinal Bleed, Hx Ulcer, Hx Urosepsis History: Reports: Hx Kidney Infection - MARCH 2017 Denies: Hx Kidney Stones, Hx Renal Disease Musculoskeletal History: Reports: Hx Tendonitis - RIGHT ELBOW Sensory History: Reports: Hx Contacts or Glasses Denies: Hx Hearing Aid Opthamlomology History: Reports: Hx Contacts or Glasses Neurological History: Reports: Hx Seizures - OCCURED 22 YEARS AGO Denies: Hx Dementia, Hx Migraine, Hx Transient Ischemic Attacks (TIA) Psychiatric History: Reports: Hx Anxiety - GENERAL Denies: Hx Depression, Hx Schizophrenia, Hx Bipolar Disorder - Cancer History Hx Chemotherapy: No Hx Radiation Therapy: No - Surgical History Surgery Procedure, Year, and Place: TYMPANIC MEMBRANE PATCH 1989.C SECTION 1994, . LEFT BREAT LUMPECTOMY 2010 [facility]. LEFT BREAST LUMPECTOMY 08/16/17 Hx Anesthesia Reactions: No Infectious Disease History: No Infectious Disease History: Denies: Traveled Outside the [place] in Last 30 Days - Family History Known Family History: Positive: Cardiac Disease - Social History Occupation: Employed Full-time Alcohol Use: None Substance Use Type: Reports: None Smoking Status (MU): Light Every Day Tobacco Smoker Type: Shanti Amount Used/How Often: genia Length of Time of Smoking/Using Tobacco: since age 12 Have You Smoked in the Last Year: No Review of Systems Constitutional: Negative Positive: Nasal Discharge Positive: Cough All Other Systems Reviewed And Are Negative: Yes Physical Exam Triage Information Reviewed: Yes Vital Signs On Initial Exam: Initial Vitals Temp Pulse Resp BP Pulse Ox 98.9 F 65 17 121/77 99 02/25/19 08:27 02/25/19 08:27 02/25/19 08:27 02/25/19 08:27 02/25/19 08:27 Vital Signs Reviewed: Yes Appearance: Positive: Well-Appearing, No Pain Distress Skin: Positive: Warm, Skin Color Reflects Adequate Perfusion Head/Face: Positive: Normal Head/Face Inspection Eyes: Positive: EOMI ENT: Positive: Normal ENT inspection, Other - scaring left TM Neck: Positive: Nontender Respiratory/Lung Sounds: Positive: Clear to Auscultation, Breath Sounds Present Cardiovascular: Positive: RRR. Negative: Murmur Abdomen Description: Negative: Distended Musculoskeletal: Positive: Strength/ROM Intact Neurological: Positive: Sensory/Motor Intact, Alert, Oriented to Person Place, Time, CN Intact II-III, Speech Normal Psychiatric: Positive: Normal Diagnostics - Vital Signs Vital Signs Temp Pulse Resp BP Pulse Ox 02/25/19 08:27 98.9 F 65 17 121/77 99 - Laboratory Lab Statement: Any lab studies that have been ordered have been reviewed, and results considered in the medical decision making process. EENT Course/Dx - Course Course Of Treatment: 44 yr old with URI symptoms. DC home in stable condition. - Diagnoses Provider Diagnoses: Upper respiratory infection Discharge ED - Sign-Out/Discharge Documenting (check all that apply): Patient Departure All imaging exams completed and their final reports reviewed: No Studies - Discharge Plan Condition: Good Disposition: HOME Patient Education Materials: Upper Respiratory Infection (ED) Forms: *Work Release Referrals: Keely Monge MD [Primary Care Provider] - 2 Days - Billing Disposition and Condition Condition: GOOD Disposition: Home
== END 2019-02-25 09:33 | disposition home or self-care (01) ==
LOC: UCCORT 08:09
DX: J06.9 Acute upper respiratory infection, unspecified (principal); F17.290 Nicotine dependence, other tobacco product, uncomplicated
CPT/HCPCS: 99211; G0463